=== PATIENT | female | born 1950 | race Caucasian/White ===

== ENCOUNTER → 2016-07-13 | Outpatient (CLI) | payer OTHER ==
[~2016-07-13] MED LIST: ACET-1256 PO; ASPI-390 PO; CLX/20 PO
[2016-07-13 12:21] LABS: BASO % 0.6 %; BASO ABS # 0.03 K/uL (0-0.2); COMPLETE YES; EOS % 1.4 %; HEMATOCRIT 40.4 % (37-47); IG% 0.2 %; LYMPH % 31.1 %; LYMPH ABS # 1.53 K/uL (1.2-3.4); MEAN CELL VOLUME 85.2 fL (80-100); MEAN CORPUSCULAR HEMOGLOBIN 28.7 pg (25-34); MEAN CORPUSCULAR HGB CONC 33.7 g/dl (32-36); MEAN PLATELET VOLUME 9.5 fL (7.4-10.4); MONO % 7.7 %; PLATELET COUNT 266 K/uL (130-400); RED BLOOD COUNT 4.74 M/uL (4.2-5.4); WHITE BLOOD COUNT 4.92 K/uL (4.8-10.8)
[2016-07-13 12:51] LABS: ALT/SGPT 21 U/L (12-78); BLOOD UREA NITROGEN 15 mg/dl (7-18); BUN/CREATININE RATIO 19.7 (10-20); CALCIUM 8.8 mg/dl (8.5-10.1); CARBON DIOXIDE 24 mmol/L (21-32); CHLORIDE 108 mmol/L (98-107); CHOLESTEROL 189 mg/dl (0-200); CREATININE 0.75 mg/dl (0.60-1.20); GLUCOSE 90 mg/dl (70-99); POTASSIUM 3.9 mmol/L (3.5-5.1); SODIUM 141 mmol/L (136-145); TRIGLYCERIDES 93 mg/dl (0-150); VERY LOW DENSITY LIPOPROT CALC 19 mg/dl
[2016-07-13 13:03] LABS: ALB/GLOB RATIO 0.9 (0.9-2); ALKALINE PHOSPHATASE 85 U/L (45-117); AST/SGOT 22 U/L (15-37); CHOLESTEROL/HDL RATIO 2.9; HDL CHOLESTEROL 65 mg/dl; LDL CHOLESTEROL CALCULATED 105 mg/dl; PHOSPHORUS 2.5 mg/dl (2.5-4.9); URIC ACID 3.8 mg/dl (2.6-7.2)
[2016-07-13 13:11] LABS: ESTIMATED AVERAGE GLUCOSE 103 mg/dl; HA1C FLAG Normal (Normal)
[2016-07-16 12:53] LABS: C-REACTIVE PROT HIGHSEN 7.7 MG/L
== END | disposition home or self-care (01) ==
LOC: C.LAB 11:18
PROVIDERS: ATTEND Family Medicine
DX: R73.09 Other abnormal glucose (principal); E55.9 Vitamin D deficiency, unspecified; D51.9 Vitamin B12 deficiency anemia, unspecified

== ENCOUNTER → 2016-08-03 | Outpatient (CLI) | payer OTHER ==
--- NOTE | 2016-08-03 10:26 | DIAGNOSTIC IMAGING REPORT ---
PELVIS AND BILATERAL HIP RADIOGRAPHS CLINICAL HISTORY: Right groin pain. COMPARISON STUDY: No previous studies for comparison. FINDINGS: The sacroiliac joints and symphysis pubis are intact. There is no acute fracture within the pelvis or the hips. There is mild to moderate arthritis of the sacroiliac joints. No suspicious osseous lesion is present. There is mild joint space narrowing of the right hip with osteophytosis. There may be subchondral cysts within the right femoral head. There is no evidence for avascular necrosis. There is mild osteophytosis of the left hip. IMPRESSION: 1. No acute fracture within the pelvis or hips. 2. Mild to moderate arthritis of the right hip. 3. Mild arthritis of the left hip. Electronically signed by: Jaden Arrieta M.D. 08/03/2016 10:24 AM Dictated Date/Time: 08/03/2016 10:23 AM
== END | disposition home or self-care (01) ==
LOC: C.RAD 09:06
PROVIDERS: ATTEND Family Medicine
DX: R10.30 Lower abdominal pain, unspecified (principal); M16.0 Bilateral primary osteoarthritis of hip

== ENCOUNTER → 2016-09-17 | Outpatient (CLI) | payer OTHER | END | disposition home or self-care (01) | LOC: C.PAPS 10:06 | PROVIDERS: ATTEND Obstetrics & Gynecology | DX: Z01.419 Encounter for gynecological examination (general) (routine) without abnormal findings (principal); C50.919 Malignant neoplasm of unspecified site of unspecified female breast ==

== ENCOUNTER → 2017-06-05 | Outpatient (CLI) | payer OTHER ==
--- NOTE | 2017-06-05 11:01 | DIAGNOSTIC IMAGING REPORT ---
CHEST 2 VIEWS ROUTINE CLINICAL HISTORY: COUGH COMPARISON STUDY: No previous studies for comparison. FINDINGS: The cardiac and mediastinal contours are normal. There is no evidence of focal pulmonary consolidation. There is no evidence of failure. No pleural effusions are visualized.[ IMPRESSION: No active disease in the chest. Electronically signed by: Power Monson M.D. 06/05/2017 10:59 AM Dictated Date/Time: 06/05/2017 10:59 AM
== END | disposition home or self-care (01) ==
LOC: C.RADBC 10:18
PROVIDERS: ATTEND Family Medicine
DX: R05 Cough (principal)

== ENCOUNTER 2020-05-27 02:58 | Inpatient (IN) ==
[2020-05-27] MEDS ORDERED: DEXAMETHASONE SOD INJ 4 MG/ML VIAL ONE (03:22)
[2020-05-27] MEDS ORDERED: DEXAMETHASONE SOD INJ 10 MG/ML VIAL IV ONE (03:22)
[2020-05-27] MEDS ORDERED: ALBUTEROL HFA 8 GM INHALER INH ONE ×2 (03:22)
--- NOTE | 2020-05-27 03:30 | Emergency Department Note ---
History of Present Illness General Chief complaint: Shortness of Breath/Dyspnea Stated complaint: + COVID - O2 LEVELS LOW Time Seen by Provider: 05/27/20 03:11 History of Present Illness This 69-year-old diagnosed with Covid 6 days ago presents to the ER complaining of worsening shortness of breath Location: Chest Quality: Hard to breathe Severity: Severe Duration: Past few days Timing: Started to get worse few days ago Context: Patient can barely walk and O2 sats are low at home and came in Modifying factors: better with rest; worse with activity Patient denies chest pain, abdominal pain, vomiting, diarrhea. No prior lung disease per patient. She does not smoke. O2 sats are 80% on room air. Home Medications Medication Instructions Recorded Confirmed Type Toviaz 8 mg PO QAM 08/17/19 05/27/20 History cholecalciferol (vitamin D3) 5,000 unit PO QAM 08/17/19 05/27/20 History [Vitamin D3] cyanocobalamin (vitamin B-12) 5,000 mcg PO QAM 08/17/19 05/27/20 History venlafaxine 75 mg PO QAM 03/16/20 05/27/20 History atenolol 25 mg PO QPM 05/23/20 05/27/20 History Allergies Allergy/AdvReac Type Severity Reaction Status Date / Time Penicillins Allergy Mild ITCHING Verified 05/27/20 03:55 NSAIDS (Non-Steroidal AdvReac Mild ITCHING Verified 05/27/20 03:55 Anti-Inflamma Past Med/Surg History Medical History (Updated 05/27/20 @ 03:30 by Charla Rubin PA-C) Anxiety Depression GERD (gastroesophageal reflux disease) Hiatal hernia History of breast cancer LEFT LUMPECTOMY-1998 History of ovarian cyst Migraine Osteoarthritis Overactive bladder Stress incontinence Surgical History History of breast biopsy LEFT History of cholecystectomy History of colonoscopy W/ POLYPECTOMY History of lumpectomy of left breast History of oral surgery History of ovarian cystectomy History of surgery BLADDER TACK SURGERY History of tubal ligation History of wisdom tooth extraction Hx of LASIK Status post Mohs surgery x4 Family History Uncle Family hx of colon cancer Other No family history of adverse response to anesthesia Social History Smoking Status: Never smoker Second Hand Exposure: No; Hx Alcohol Use: Yes Alcohol type: wine Hx Substance Use: No Preferred Language: Uzbek Communication Ability: Effective Waste Chopper Required: No Beliefs That Will Affect Care: None Current Living Situation: Spouse Feels Safe at Home: Yes Assistive Devices: None Review of Systems A total of 10 systems reviewed and were otherwise negative Physical Exam Vital Signs Vital Signs - 24 hr 05/27/20 03:00 05/27/20 03:13 05/27/20 03:20 Temperature 36.0 C L Temperature Source Temporal Artery Scan Pulse Rate 78 73 72 Pulse Rate from SpO2 Sensor 73 72 Respiratory Rate 28 H 26 H 25 H Respiratory Effort / Characteristics Labored Blood Pressure 133/68 160/74 H Blood Pressure Mean 89 112 Pulse Oximetry 80 L 94 94 Oxygen Delivery Method Room Air Nasal Cannula Nasal Cannula Oxygen Flow Rate 6 6 Sepsis New/Unexplained Change in Mental Status N/A Sepsis Action Taken by Nursing No Action Required Oxygen Flow Rate - Titration Pulse Oximetry Post Tiitration 05/27/20 03:30 05/27/20 03:45 05/27/20 03:48 Temperature Temperature Source Pulse Rate 74 73 73 Pulse Rate from SpO2 Sensor 73 73 73 Respiratory Rate 30 H 31 H 21 Respiratory Effort / Characteristics Blood Pressure 137/92 Blood Pressure Mean 113 Pulse Oximetry 97 98 96 Oxygen Delivery Method Nasal Cannula Nasal Cannula Nasal Cannula Oxygen Flow Rate 6 6 6 Sepsis New/Unexplained Change in Mental Status Sepsis Action Taken by Nursing Oxygen Flow Rate - Titration Pulse Oximetry Post Tiitration 05/27/20 03:57 05/27/20 03:59 05/27/20 04:00 Temperature Temperature Source Pulse Rate 83 Pulse Rate from SpO2 Sensor 83 Respiratory Rate 21 Respiratory Effort / Characteristics Spontaneous Blood Pressure 155/84 H Blood Pressure Mean 105 Pulse Oximetry 80 L 94 Oxygen Delivery Method Room Air Nasal Cannula Oxygen Flow Rate 6 Sepsis New/Unexplained Change in Mental Status Sepsis Action Taken by Nursing Oxygen Flow Rate - Titration 6 Pulse Oximetry Post Tiitration 96 05/27/20 04:03 Temperature Temperature Source Pulse Rate 80 Pulse Rate from SpO2 Sensor Respiratory Rate 32 H Respiratory Effort / Characteristics Blood Pressure Blood Pressure Mean Pulse Oximetry 95 Oxygen Delivery Method Nasal Cannula Oxygen Flow Rate 6 Sepsis New/Unexplained Change in Mental Status Sepsis Action Taken by Nursing Oxygen Flow Rate - Titration Pulse Oximetry Post Tiitration VITALS: Vitals are noted on the nurse's note and reviewed by myself. Vital signs hypoxic and tachypneic. GENERAL: Elderly female working to breathe, in acute distress SKIN: The skin was without rashes, erythema, edema, or bruising. There is no tenting of the skin. Capillary reflex less than 2 seconds. HEAD: Normocephalic atraumatic. EARS: External auditory canals clear, tympanic membranes pearly omalley without erythema or effusion bilaterally. EYES: Pupils equal round and reactive to light and accommodation. Conjunctivae without injection, sclerae without icterus. Extraocular movements intact. NOSE: Patent, turbinates without inflammation or discharge. No sinus tenderness. MOUTH: Mucous membranes moist. Pharynx without erythema or exudate. Uvula midline. Airway patent. Tongue does not deviate. NECK: Supple without nuchal rigidity. No lymphadenopathy. No thyromegaly. Cervical spine is nontender. No JVD. HEART: Regular rate and rhythm LUNGS: Mild diffuse end expiratory wheezes, + retractions + accessory muscle use. ABDOMEN: Positive bowel sounds x 4. Normal tympanic percussion. Soft, nonten claudia, without masses or organomegaly. Abarca sign negative. No guarding or rebound tenderness. No CVA tenderness MUSCULOSKELETAL: No muscle atrophy, erythema, or edema noted. NEURO: Patient was alert and oriented to person place and time. Normal sensation to light and sharp touch. No focal neurological deficits. Course Administered Medications Discontinued Medications Albuterol (Albuterol Hfa 8 Gm Inhaler) Confirm Administered Dose 60 puffs INH .STK-MED ONE Stop: 05/27/20 03:23 Last Admin: 05/27/20 03:48 Dose: Not Given Documented by: [id number] Albuterol (Albuterol Hfa 8 Gm Inhaler) 2 puffs INH NOW ONE Stop: 05/27/20 03:23 Last Admin: 05/27/20 03:40 Dose: 2 puffs Documented by: [id number] Dexamethasone (Dexamethasone Sod Inj 4 Mg/Ml Vial) Confirm Administered Dose 8 mg .ROUTE .STK-MED ONE Stop: 05/27/20 03:23 Last Admin: 05/27/20 03:48 Dose: Not Given Documented by: [id number] Dexamethasone (Dexamethasone Sod Inj 10 Mg/Ml Vial) 6 mg IV NOW ONE Stop: 05/27/20 03:23 Last Admin: 05/27/20 03:48 Dose: 6 mg Documented by: [id number] Medical Decision Making Medical Records Attestation: I reviewed the patient's medical records. Home Medications Current Medication List: was personally reviewed by me Laboratory Data Attestation: I reviewed the patient's lab results. Result diagrams: 05/27/20 03:32 05/27/20 03:32 Lab Results 05/27/20 05/27/20 05/27/20 Range/Units 03:32 03:32 03:32 WBC 5.05 (4.8-10.8) K/uL RBC 4.36 (4.2-5.4) M/uL Hgb 12.4 (12.0-16.0) g/dL Hct 36.5 L (37-47) % MCV 83.7 (80-100) fL MCH 28.4 (25-34) pg MCHC 34.0 (32-36) g/dL RDW Std Deviation 38.2 (36.4-46.3) fL RDW Coeff of Vince 12.5 (11.5-14.5) % Plt Count 248 (130-400) K/uL MPV 9.5 (7.4-10.4) fL Immature Gran % (Auto) 0.4 % Neut % (Auto) 76.4 % Lymph % (Auto) 13.7 % Amite % (Auto) 9.3 % Eos % (Auto) 0.0 % Baso % (Auto) 0.2 % Neut # (Auto) 3.86 (1.4-6.5) K/uL Lymph # (Auto) 0.69 L (1.2-3.4) K/uL Amite # (Auto) 0.47 (0.11-0.59) K/uL Eos # (Auto) 0.00 (0-0.5) K/uL Baso # (Auto) 0.01 (0-0.2) K/uL Immature Gran # (Auto) 0.02 (0.00-0.02) K/uL PT 11.4 (9.0-12.0) Seconds INR 1.1 (0.9-1.1) APTT 29.0 (21.0-31.0) Seconds PTT Ratio 1.0 Sodium 136 (136-145) mmol/L Potassium 3.6 (3.5-5.1) mmol/L Chloride 103 (98-107) mmol/L Carbon Dioxide 29 (21-32) mmol/L Anion Gap 4.0 (3-11) BUN 11 (7-18) mg/dl Creatinine 0.66 (0.6-1.2) mg/dl Est Cr Clr Drug Dosing Not Reportable Est GFR ( Amer) 103.7 Est GFR (Non-Af Amer) 89.5 BUN/Creatinine Ratio 16.2 (10-20) Glucose 101 H (70-99) mg/dl Lactate (0.4-2.0) mmol/L Calcium 8.0 L (8.5-10.1) mg/dl Magnesium 2.2 (1.8-2.4) mg/dl Total Bilirubin 0.6 (0.2-1) mg/dl AST 64 H (15-37) U/L ALT 36 (12-78) U/L Alkaline Phosphatase 58 (45-117) U/L Troponin I < 0.015 (0-0.045) ng/ml Total Protein 6.7 (6.4-8.2) gm/dl Albumin 2.6 L (3.4-5.0) gm/dl Globulin 4.1 H (2.5-4.0) gm/dl Albumin/Globulin Ratio 0.6 L (0.9-2) Procalcitonin (0-0.5) ng/ml 05/27/20 05/27/20 Range/Units 03:32 03:32 WBC (4.8-10.8) K/uL RBC (4.2-5.4) M/uL Hgb (12.0-16.0) g/dL Hct (37-47) % MCV (80-100) fL MCH (25-34) pg MCHC (32-36) g/dL RDW Std Deviation (36.4-46.3) fL RDW Coeff of Vince (11.5-14.5) % Plt Count (130-400) K/uL MPV (7.4-10.4) fL Immature Gran % (Auto) % Neut % (Auto) % Lymph % (Auto) % Amite % (Auto) % Eos % (Auto) % Baso % (Auto) % Neut # (Auto) (1.4-6.5) K/uL Lymph # (Auto) (1.2-3.4) K/uL Amite # (Auto) (0.11-0.59) K/uL Eos # (Auto) (0-0.5) K/uL Baso # (Auto) (0-0.2) K/uL Immature Gran # (Auto) (0.00-0.02) K/uL PT (9.0-12.0) Seconds INR (0.9-1.1) APTT (21.0-31.0) Seconds PTT Ratio Sodium (136-145) mmol/L Potassium (3.5-5.1) mmol/L Chloride (98-107) mmol/L Carbon Dioxide (21-32) mmol/L Anion Gap (3-11) BUN (7-18) mg/dl Creatinine (0.6-1.2) mg/dl Est Cr Clr Drug Dosing Est GFR ( Amer) Est GFR (Non-Af Amer) BUN/Creatinine Ratio (10-20) Glucose (70-99) mg/dl Lactate 1.8 (0.4-2.0) mmol/L Calcium (8.5-10.1) mg/dl Magnesium (1.8-2.4) mg/dl Total Bilirubin (0.2-1) mg/dl AST (15-37) U/L ALT (12-78) U/L Alkaline Phosphatase (45-117) U/L Troponin I (0-0.045) ng/ml Total Protein (6.4-8.2) gm/dl Albumin (3.4-5.0) gm/dl Globulin (2.5-4.0) gm/dl Albumin/Globulin Ratio (0.9-2) Procalcitonin < 0.05 (0-0.5) ng/ml Imaging Data Attestation: I personally reviewed and interpreted this imaging study as follows: MDM Narrative Prior records/ancillary studies reviewed. Triage Nursing notes reviewed. The patient's history was concerning for respiratory difficulties. Differential diagnosis: Etiologies such as infections, reactive airway disease, pneumonia, pneumothorax, COPD, CHF, cardiac ischemia, pulmonary embolism, musculoskeletal, gastrointestinal, as well as others were entertained. Physical examination: As above. ER treatment provided: An order was placed for continuous cardiac monitoring. The monitor shows a rate of 60-100 with a sinus rhythm. Decadron, albuterol On reassessment the patient felt better. Diagnostic interpretation by me: The electrocardiogram was negative for acute ischemic or pathologic change. Normal sinus, normal intervals, no acute ST-T wave changes. Impression normal sinus rhythm interpreted by myself EKG ordered for dyspnea I think arrhythmia is unlikely. EKG shows normal sinus rhythm with no interval abnormalities such as QT prolongation or WPW. There are no findings to suggest Brugada syndrome. Cardiac monitoring in the emergency department reveals no tachycardic or bradycardic dysrhythmia. Hypertrophic cardiomyopathy was considered but there are no clear historical elements pointing toward this. EKG is not suggestive. The QRS voltage is not extremely large and there are no suggestive Q waves. The labs revealed negative lactic acid Patient was positive for Covid 6 days ago Blood cultures pending Patient refused ABG Imaging studies: Chest x-ray bilateral multifocal pneumonia concerning for Covid that is worse than prior x-ray per my interpretation. Consultation: A consultation was placed with Dr. Augustin, hospitalist. The case was discussed and diagnostics were reviewed. The patient was evaluated in the ER for further treatment. This appears to be consistent with worsening Covid pneumonia with respiratory failure and hypoxemia. Patient started on steroids. Medicine was consulted. I did speak to the per the patient's request. Patient is admitted.. By the evaluation outlined above emergent etiologies such as CHF, cardiac ischemia, pulmonary embolism, pneumothorax, musculoskeletal, as well as others were deemed relatively unlikely. The pt informed about the findings as listed above. All questions were answered and pleased with the treatment. The chart was completed utilizing [employer] Speech voice recognition software. Grammatical errors, random word insertions, pronoun errors, and incomplete sentences are an occassional consequence of this system due to software limitations, ambient noise, and hardware issues. Any formal questions or concerns about the content, text, or information contained within the body of this dictation should be directly addressed to the physician occupational therapist assistant for clarification. Impression & Plan Pneumonia due to COVID-19 virus, Hypoxemia Discharge Plan Visit Data Chief Complaint: Shortness of Breath/Dyspnea Stated Complaint: + COVID - O2 LEVELS LOW ED Provider: Pheasant,Devi S. ED Midlevel Provider: Charla Rubin Discharge Problem: Pneumonia due to COVID-19 virus, Hypoxemia Patient Disposition: Admitted As Inpatient Condition: Fair Forms Stand Alone Forms: My [facility] Prescriptions Prescriptions: No Action atenolol 25 mg tablet 25 mg PO QPM RF: 0 Toviaz 8 mg tablet extended release 24 hr 8 mg PO QAM RF: 0 cholecalciferol (vitamin D3) [Vitamin D3] 125 mcg (5,000 unit) Tablet 5,000 unit PO QAM RF: 0 cyanocobalamin (vitamin B-12) 5,000 mcg Capsule 5,000 mcg PO QAM RF: 0 venlafaxine 75 mg Tablet 75 mg PO QAM RF: 0 Referrals Referrals: Lui Borja MD [Primary Care Provider] -
[2020-05-27 03:46] LABS: Basophils # (auto) 0.01 K/uL (0-0.2); Basophils % (auto) 0.2 %; Hematocrit (blood only) 36.5 % (37-47); Hemoglobin 12.4 g/dL (12.0-16.0); Immature Granulocytes # (auto) 0.02 K/uL (0.00-0.02); Immature Granulocytes % (auto) 0.4 %; Lymphocytes # (auto) 0.69 K/uL (1.2-3.4); Lymphocytes % (auto) 13.7 %; Mean Corpuscular Hemoglobin 28.4 pg (25-34); Mean Corpuscular Volume 83.7 fL (80-100); Mean Platelet Volume 9.5 fL (7.4-10.4); Monocytes # (auto) 0.47 K/uL (0.11-0.59); Monocytes % (auto) 9.3 %; Neutrophils # (auto) 3.86 K/uL (1.4-6.5); Neutrophils % (auto) 76.4 %; Platelet Count 248 K/uL (130-400); RDW Coefficient of Variation 12.5 % (11.5-14.5); RDW Standard Deviation 38.2 fL (36.4-46.3); Red Blood Count 4.36 M/uL (4.2-5.4); White Blood Count 5.05 K/uL (4.8-10.8)
[2020-05-27 03:58] LABS: INR 1.1 (0.9-1.1); Prothrombin Time 11.4 Seconds (9.0-12.0)
[2020-05-27 04:03] LABS: Alanine Aminotransferase 36 U/L (12-78); Albumin Level 2.6 gm/dl (3.4-5.0); Aspartate Aminotransferase 64 U/L (15-37); BUN Creatinine Ratio 16.2 (10-20); Blood Urea Nitrogen 11 mg/dl (7-18); Carbon Dioxide 29 mmol/L (21-32); Chloride 103 mmol/L (98-107); Est GFR (African American) 103.7; Est GFR (Non-African American) 89.5; Glucose 101 mg/dl (70-99); Magnesium 2.2 mg/dl (1.8-2.4); Potassium 3.6 mmol/L (3.5-5.1); Sodium 136 mmol/L (136-145)
[2020-05-27 04:08] LABS: Albumin Globulin Ratio 0.6 (0.9-2); Alkaline Phosphatase 58 U/L (45-117); Bilirubin,Total 0.6 mg/dl (0.2-1); Globulin 4.1 gm/dl (2.5-4.0); Total Protein 6.7 gm/dl (6.4-8.2); Troponin I < 0.015 ng/ml (0-0.045)
--- NOTE | 2020-05-27 05:37 | History & Physical Report ---
Date of Service May 27, 2020 Assessment & Plan (1) Acute respiratory failure with hypoxia: Acute respiratory failure with hypoxia/bilateral pneumonia due to COVID-19 virus- Dexamethasone 6 mg IV every morning Remdesivir IV per protocol Convalescent plasma, consent obtained Ventolin HFA 2 puffs 4 times daily Ceftriaxone 1 g IV daily Azithromycin 500 mg IV daily Zinc sulfate turn 20 mg p.o. daily Hydroxychloroquine 200 mg p.o. twice daily Guaifenesin extended release 600 mg p.o. twice daily NSS + KCl 20 mEq at 100 mils per hour BiPAP as needed per protocol Present on Admission?: Yes (2) Pneumonia due to COVID-19 virus: See above Present on Admission?: Yes (3) Overactive bladder: Continue Toviaz or equivalent Present on Admission?: Yes (4) Hypertension: Continue atenolol 25 mg daily with hold parameters Present on Admission?: Yes (5) Vitamin B12 deficiency: Continue vitamin B12 supplement 5000 mcg p.o. every morning Present on Admission?: Yes (6) Anxiety and depression: Continue venlafaxine 75 mg p.o. every morning Present on Admission?: Yes (7) Breast cancer: History of Present Illness Chief Complaint: The patient presents to the emergency department with complaint of worsening shortness of breath over the past several days Primary Care Provider: Lui Borja MD The patient is a 69-year-old female with a past medical history including breast cancer, hypertension, vitamin B12 deficiency, overactive bladder and depression. She had been seen in the emergency department on 05/21 and was diagnosed with COVID-19 at that time. She was given symptomatic treatment for cough, and told to quarantine at home. Since that time she has become progressively more short of breath, until it worsened to the point today where she has cut back in the emergency department for assessment. In the emergency department, patient was found to have a pulse ox of 80% on room air, that improved to 95% on 6 L oxygen mask Chest x-ray showed a worsening bilateral interstitial pneumonia compared to x- ray of 05/21. Allergies Allergy/AdvReac Type Severity Reaction Status Date / Time Penicillins Allergy Mild ITCHING Verified 05/27/20 03:55 NSAIDS (Non-Steroidal AdvReac Mild ITCHING Verified 05/27/20 03:55 Anti-Inflamma Home Medications Medication Instructions Recorded Confirmed Type Toviaz 8 mg PO QAM 08/17/19 05/27/20 History cholecalciferol (vitamin D3) 5,000 unit PO QAM 08/17/19 05/27/20 History [Vitamin D3] cyanocobalamin (vitamin B-12) 5,000 mcg PO QAM 08/17/19 05/27/20 History venlafaxine 75 mg PO QAM 03/16/20 05/27/20 History atenolol 25 mg PO QPM 05/23/20 05/27/20 History Past Med/Surg History Medical History (Updated 05/27/20 @ 05:46 by Suhas Franco MD) Anxiety and depression GERD (gastroesophageal reflux disease) Hiatal hernia History of breast cancer LEFT LUMPECTOMY-1998 History of ovarian cyst Hypertension Migraine Osteoarthritis Overactive bladder Stress incontinence Vitamin B12 deficiency Surgical History History of breast biopsy LEFT History of cholecystectomy History of colonoscopy W/ POLYPECTOMY History of lumpectomy of left breast History of oral surgery History of ovarian cystectomy History of surgery BLADDER TACK SURGERY History of tubal ligation History of wisdom tooth extraction Hx of LASIK Status post Mohs surgery x4 Family History Uncle Family hx of colon cancer Other No family history of adverse response to anesthesia Social History Smoking Status: Never smoker Second Hand Exposure: No; Hx Alcohol Use: Yes Alcohol type: wine Hx Substance Use: No Preferred Language: Portuguese Communication Ability: Effective Merchandise Flow Manager Required: No Beliefs That Will Affect Care: None Current Living Situation: Spouse Feels Safe at Home: Yes Assistive Devices: None Review of Systems Review of Systems: The patient denies palpitations, lower extremity swelling, sore throat, fevers, chills, sweats, nausea, vomiting, diarrhea , constipation, abdominal pain, pelvic pain, blood in urine or stool, dysuria, urinary frequency or urgency, lightheadedness, dizziness, headache, memory loss, loss of consciousness, rash, abnormal bruising or bleeding, imbalance, focal weakness, numbness or tingling in arms or legs, back or neck pain, or night sweats. The review of systems is otherwise negative other than for that already noted above, and at least 10 systems have been reviewed. Physical Exam Physical Exam: The patient is awake, alert and oriented 3, well developed and well nourished, normocephalic and atraumatic, lying in bed and in mild to moderate respiratory distress. HEENT--PERRL, EOMI, mucous membranes and oropharynx dry. Neck--supple. No JVD. No bruits. Thyroid normal, trachea midline, no adenopathy. Heart--normal S1 and S2. No murmurs, rubs or gallops. Lungs--coarse breath sounds bilaterally. Mild respiratory distress without accessory muscle use. Abdomen--normal bowel sounds and soft. Nontender. Nondistended, no hernias or masses, no organomegaly. Extremities--no cyanosis or clubbing. No edema. Dermatologic--normal skin turgor, normal color, no abnormal lymph nodes, no rash. Neurologic--cranial nerves II through XII grossly intact. Rheumatologic--normal range of motion. Psychiatric--normal affect. Results & Data Results & Data ([facility]) Vital Signs (Past 12 Hours) Vital Signs Temp Pulse Resp BP Pulse Ox 05/27/20 05:31 71 19 93 05/27/20 05:30 70 20 148/78 H 94 05/27/20 04:45 79 20 97 05/27/20 04:31 75 24 98 05/27/20 04:30 76 24 146/83 H 98 05/27/20 04:15 76 24 96 05/27/20 04:03 80 32 H 95 05/27/20 04:00 83 21 155/84 H 94 05/27/20 03:59 80 L 05/27/20 03:48 73 21 137/92 96 05/27/20 03:45 73 31 H 98 05/27/20 03:30 74 30 H 97 05/27/20 03:20 72 25 H 94 05/27/20 03:13 73 26 H 160/74 H 94 05/27/20 03:00 96.8 F L 78 28 H 133/68 80 L Laboratory Results Laboratory Results WBC 5.05 K/uL (4.8-10.8) 05/27/20 03:32 RBC 4.36 M/uL (4.2-5.4) 05/27/20 03:32 Hgb 12.4 g/dL (12.0-16.0) 05/27/20 03:32 Hct 36.5 % (37-47) L 05/27/20 03:32 MCV 83.7 fL (80-100) 05/27/20 03:32 MCH 28.4 pg (25-34) 05/27/20 03:32 MCHC 34.0 g/dL (32-36) 05/27/20 03:32 RDW Std Deviation 38.2 fL (36.4-46.3) 05/27/20 03:32 RDW Coeff of Vince 12.5 % (11.5-14.5) 05/27/20 03:32 Plt Count 248 K/uL (130-400) 05/27/20 03:32 MPV 9.5 fL (7.4-10.4) 05/27/20 03:32 Immature Gran % (Auto) 0.4 % 05/27/20 03:32 Neut % (Auto) 76.4 % 05/27/20 03:32 Lymph % (Auto) 13.7 % 05/27/20 03:32 Webb % (Auto) 9.3 % 05/27/20 03:32 Eos % (Auto) 0.0 % 05/27/20 03:32 Baso % (Auto) 0.2 % 05/27/20 03:32 Neut # (Auto) 3.86 K/uL (1.4-6.5) 05/27/20 03:32 Lymph # (Auto) 0.69 K/uL (1.2-3.4) L 05/27/20 03:32 Webb # (Auto) 0.47 K/uL (0.11-0.59) 05/27/20 03:32 Eos # (Auto) 0.00 K/uL (0-0.5) 05/27/20 03:32 Baso # (Auto) 0.01 K/uL (0-0.2) 05/27/20 03:32 Immature Gran # (Auto) 0.02 K/uL (0.00-0.02) 05/27/20 03:32 PT 11.4 Seconds (9.0-12.0) 05/27/20 03:32 INR 1.1 (0.9-1.1) 05/27/20 03:32 APTT 29.0 Seconds (21.0-31.0) 05/27/20 03:32 PTT Ratio 1.0 05/27/20 03:32 Sodium 136 mmol/L (136-145) 05/27/20 03:32 Potassium 3.6 mmol/L (3.5-5.1) 05/27/20 03:32 Chloride 103 mmol/L (98-107) 05/27/20 03:32 Carbon Dioxide 29 mmol/L (21-32) 05/27/20 03:32 Anion Gap 4.0 (3-11) 05/27/20 03:32 BUN 11 mg/dl (7-18) 05/27/20 03:32 Creatinine 0.66 mg/dl (0.6-1.2) 05/27/20 03:32 Est Cr Clr Drug Dosing Not Reportable 05/27/20 03:32 Est GFR ( Amer) 103.7 05/27/20 03:32 Est GFR (Non-Af Amer) 89.5 05/27/20 03:32 BUN/Creatinine Ratio 16.2 (10-20) 05/27/20 03:32 Glucose 101 mg/dl (70-99) H 05/27/20 03:32 Lactate 1.8 mmol/L (0.4-2.0) 05/27/20 03:32 Calcium 8.0 mg/dl (8.5-10.1) L 05/27/20 03:32 Magnesium 2.2 mg/dl (1.8-2.4) 05/27/20 03:32 Total Bilirubin 0.6 mg/dl (0.2-1) 05/27/20 03:32 AST 64 U/L (15-37) H 05/27/20 03:32 ALT 36 U/L (12-78) 05/27/20 03:32 Alkaline Phosphatase 58 U/L (45-117) 05/27/20 03:32 Troponin I < 0.015 ng/ml (0-0.045) 05/27/20 03:32 Total Protein 6.7 gm/dl (6.4-8.2) 05/27/20 03:32 Albumin 2.6 gm/dl (3.4-5.0) L 05/27/20 03:32 Globulin 4.1 gm/dl (2.5-4.0) H 05/27/20 03:32 Albumin/Globulin Ratio 0.6 (0.9-2) L 05/27/20 03:32 Procalcitonin < 0.05 ng/ml (0-0.5) 05/27/20 03:32 Code Status & VTE Plan Code Status Full code VTE Prophylaxis Plan VTE Prophylaxis will be ordered: Yes PG Care Time/CCT Total # of Minutes Spent Total Time Spent with Patient: Total time spent is greater than 50% in coordination of care (as documented) at patient's floor/unit and/or counseling patient: Coding Level of Care Code 47613 Initial Inpt Care Lvl 3 Diagnoses Acute respiratory failure with hypoxia J96.01 Pneumonia due to COVID-19 virus U07.1; J12.89 Overactive bladder N32.81 Hypertension I10 Vitamin B12 deficiency E53.8 Anxiety and depression F41.9; F32.9 Breast cancer C50.919
[2020-05-27] MEDS ORDERED: ACETAMINOPHEN 325 MG TAB PO PRN (06:41)
[2020-05-27] MEDS ORDERED: BENZONATATE 100 MG CAPSULE PO PRN (06:41)
[2020-05-27] MEDS ORDERED: NSS + 20MEQ KCL 20 MEQ/1,000 ML BAG IV SCH (06:41)
[2020-05-27] MEDS ORDERED: ONDANSETRON INJ 2 MG/ML 2 ML VIAL IV PRN (06:41)
--- NOTE | 2020-05-27 07:05 | XRay Report ---
XR chest 1V portable CLINICAL HISTORY: SEPSIS COMPARISON STUDY: 05/23/2020 FINDINGS: There are progressive multifocal airspace opacities consistent with a progressive pneumonia . There is no failure. There are no significant pleural effusions.[ IMPRESSION: Progressive bilateral pulmonary airspace opacities consistent with a worsening multifocal pneumonia ACT 112: Negative or not required by law. Electronically signed by: Power Monson M.D. 05/27/2020 7:03 AM
[2020-05-27] MEDS ORDERED: REMDESIVIR 200 MG in SODIUM CHLORIDE 0.9% 210 ML IV ONE (07:30)
[2020-05-27] MEDS ORDERED: HYDROXYCHLOROQUINE SULFATE 200 MG TAB PO SCH (09:00)
[2020-05-27] MEDS ORDERED: cefTRIAXone SODIUM 2,000 MG in DEXTROSE 5% 50 ML IV SCH (09:00)
[2020-05-27] MEDS ORDERED: AZITHROMYCIN 500 MG in DEXTROSE 5% 250 ML IV SCH (09:00)
[2020-05-27 10:01] LABS: Appearance Urine Clear (Clear); Bilirubin Urine Negative (Negative); Blood Urine Negative (Negative); Color Urine Yellow; Glucose Urine UA Negative (Negative); Ketones Urine Trace (Negative); Leukocyte Esterase Urine Negative (Negative); Nitrite Urine Negative (Negative); Protein Urine Negative (Negative); Specific Gravity Urine 1.008 (1.000-1.030); Urobilinogen Urine Negative (Negative); pH Urine 7.5 (4.5-7.5)
--- NOTE | 2020-05-27 10:05 | Electrocardiogram Report ---
Test Reason : Blood Pressure : / mmHG Vent. Rate : 070 BPM Atrial Rate : 070 BPM P-R Int : 146 ms QRS Dur : 092 ms QT Int : 418 ms P-R-T Axes : 054 -22 045 degrees QTc Int : 451 ms Normal sinus rhythm Normal ECG When compared with ECG of 23-MAY-2020 20:19, No significant change was found Confirmed by Brian Arvizu ([id number]) on 05/27/2020 10:04:45 AM Referred By: REFERRED SELF Confirmed By:Brian Arvizu
[2020-05-27] MEDS: SODIUM CHLORIDE 0.9% 10ML FLUSH IV SCH (10:08)
[2020-05-27] MEDS: CHOLECALCIFEROL 1,000 UNITS 25 MCG TAB PO SCH (10:11)
[2020-05-27] MEDS: VENLAFAXINE HCL XR 75 MG CAPXR PO SCH (10:11)
[2020-05-27] MEDS: ZINC SULFATE 220 MG CAPSULE PO SCH (10:12)
[2020-05-27] MEDS: CYANOCOBALAMIN (VITAMIN B-12) 2,500 MCG TAB.SUBL SL SCH (10:12)
[2020-05-27] MEDS ORDERED: POLYETHYLENE (MIRALAX) 17 GM PACK PO PRN (14:21)
[2020-05-27] MEDS: ALBUTEROL HFA 8 GM INHALER INH SCH ×3 (20:01→20:08)
[2020-05-27] MEDS: ATENOLOL 25 MG TABLET PO SCH (21:03)
[2020-05-28] MEDS ORDERED: ALBUTEROL HFA 8 GM INHALER INH PRN (04:46)
--- NOTE | 2020-05-28 07:45 | Communication Note ---
Date of Service: May 27, 2020 Patient was seen and examined however I will not be billing for this encounter as she was admitted earlier today. She reports probably having symptoms for around 3 weeks although of exact onset. On further discussion regarding benefits, risks of convalescent plasma transfusions she subsequently declined this. She feels much improved after being started on high flow oxygen in ER. Eating and drinking well therefore IV fluids stopped.
[2020-05-28 08:03] LABS: Basophils # (auto) 0.01 K/uL (0-0.2); Basophils % (auto) 0.1 %; Hematocrit (blood only) 37.6 % (37-47); Immature Granulocytes # (auto) 0.03 K/uL (0.00-0.02); Immature Granulocytes % (auto) 0.4 %; Lymphocytes # (auto) 0.77 K/uL (1.2-3.4); Mean Corpuscular Hemoglobin 28.8 pg (25-34); Mean Corpuscular Hgb Conc 34.6 g/dL (32-36); Mean Corpuscular Volume 83.2 fL (80-100); Mean Platelet Volume 9.6 fL (7.4-10.4); Monocytes # (auto) 0.53 K/uL (0.11-0.59); Monocytes % (auto) 6.9 %; Neutrophils # (auto) 6.33 K/uL (1.4-6.5); Neutrophils % (auto) 82.6 %; Platelet Count 327 K/uL (130-400); RDW Coefficient of Variation 12.7 % (11.5-14.5); RDW Standard Deviation 38.4 fL (36.4-46.3); Red Blood Count 4.52 M/uL (4.2-5.4); White Blood Count 7.67 K/uL (4.8-10.8)
[2020-05-28] MEDS: dexAMETHasone 6 MG in SYRINGE 0 ML IV SCH (08:08)
[2020-05-28] MEDS: ENOXAPARIN INJ 40 MG/0.4 ML SYR SQ SCH ×2 (08:09→20:55)
[2020-05-28] MEDS: CHOLECALCIFEROL 1,000 UNITS 25 MCG TAB PO SCH (08:09)
[2020-05-28] MEDS: ZINC SULFATE 220 MG CAPSULE PO SCH (08:10)
[2020-05-28] MEDS: VENLAFAXINE HCL XR 75 MG CAPXR PO SCH (08:10)
[2020-05-28] MEDS: CYANOCOBALAMIN (VITAMIN B-12) 2,500 MCG TAB.SUBL SL SCH (08:11)
[2020-05-28 08:23] LABS: Albumin Level 2.5 gm/dl (3.4-5.0); BUN Creatinine Ratio 22.2 (10-20); C Reactive Protein 7.67 mg/dl (0-0.29); Calcium 8.6 mg/dl (8.5-10.1); Creatinine Clr Calc Pharmacy 81.4 ml/min; Est GFR (African American) 93.6; Est GFR (Non-African American) 80.8; Potassium 3.7 mmol/L (3.5-5.1)
[2020-05-28 08:28] LABS: Albumin Globulin Ratio 0.6 (0.9-2); Bilirubin,Total 0.5 mg/dl (0.2-1); Ferritin 436.2 ng/ml (8-388); Globulin 4.3 gm/dl (2.5-4.0); Total Protein 6.8 gm/dl (6.4-8.2)
[2020-05-28 08:37] LABS: D Dimer 2310 ug/L FEU (0-500)
[2020-05-28] MEDS ORDERED: OPTIRAY 320 125ml IV ONE (09:58)
--- NOTE | 2020-05-28 10:13 | CT Scan Report ---
CT ANGIOGRAPHY OF THE CHEST, PULMONARY EMBOLUS PROTOCOL CLINICAL HISTORY: PE,hypoxia, COVID,elevated D-dimer COMPARISON STUDY: Chest radiograph May 27, 2020. TECHNIQUE: Following IV administration of 120 mL of Optiray-320, helical axial images of the chest we re obtained utilizing the pulmonary embolus protocol. Maximal intensity projections and sagittal and coronal reformats were viewed on an independent 3D workstation. IV contrast was administered withou t complication. Automated exposure control was utilized for the study. A dose lowering technique wa s utilized adhering to the principles of ALARA. CT DOSE: 556.96 mGycm FINDINGS: No pulmonary emboli are identified although the segmental and subsegmental pulmonary arter ies are suboptimally assessed due to motion artifact. Mild cardiomegaly is noted. Note thoracic aorti c dissection is present. Mildly enlarged subcarinal lymph node measures 1.8 cm in short axis diameter . There is no pneumothorax or pleural effusion. Lungs are suboptimally assessed given respiratory mot ion. Extensive bilateral airspace opacities have progressed since radiograph of May 27, 2016. Se veral hepatic cysts are noted. The gallbladder surgically absent. IMPRESSION: 1. No pulmonary emboli identified although segmental and subsegmental pulmonary arteries suboptimally assessed due to respiratory motion. 2. Progression of extensive bilateral airspace opacities consistent with an infectious process. 3. Mildly enlarged subcarinal lymph node which is likely reactive. ACT 112: Negative or not required by law. Electronically signed by: Jaden Arrieta M.D. 05/28/2020 10:12 AM
--- NOTE | 2020-05-28 11:44 | Hospitalist Progress Note ---
Date of Service May 28, 2020 Assessment & Plan (1) Acute respiratory failure with hypoxia: Acute respiratory failure with hypoxia/bilateral pneumonia due to COVID-19 virus-symptoms started on 05/07 and her test was positive at an urgent care on 05/09 Had GI symptoms, and progressively worsening shortness of breath since that time. Was found to have a pulse ox of 80% on room air upon arrival Still with high oxygen requirement of 15 L oxygen mask on the morning of 05/28- convert to high flow nasal cannula so she can eat and drink without taking off oxygen and may also provide some PEEP D-dimer is elevated at 2310, CT angiogram chest on 05/28 is negative for PE, but shows bilateral extensive infiltrates She is unable to prone she thinks but will try to lie on her side Discussed care with pulmonology on 05/28-recommends nightly BiPAP 05/10 Continue dexamethasone 6 mg IV every morning x10-day course Continue remdesivir IV once daily for severe disease Convalescent plasma not given as not likely to benefit this far out Continue Ventolin HFA 2 puffs 4 times daily Ceftriaxone 1 g IV daily and azithromycin 500 mg IV daily given initially but then discontinued, procalcitonin negative Continue zinc sulfate daily -Follow CBC, CMP, ESR, CRP (2) Pneumonia due to COVID-19 virus: See above (3) Overactive bladder: Holding Toviaz (4) Hypertension: Blood pressures are controlled Continue atenolol 25 mg daily with hold parameters (5) Vitamin B12 deficiency: Continue vitamin B12 supplement 5000 mcg p.o. every morning (6) Anxiety and depression: Stable Continue venlafaxine 75 mg p.o. every morning (7) Breast cancer: History of such, not ongoing (8) DVT prophylaxis: Lovenox 40 mg SQ twice daily Disposition-continued stay in PCU Admission and Anticipated Discharge Date Admission Date: May 27, 2020 Subjective Patient still feels quite short of breath with minimal exertion in the bed. Does feel better than when she came in yesterday. Denies chest pains, denies nausea or vomiting. Had some dry heaves she reports earlier in the course of illness. Also had some diarrhea which now is improved. Reviewed her case and CT scan with pulmonology who recommended BiPAP at nighttime but patient was refusing this when approached by respiratory therapy. Telemetry with normal sinus rhythm and rates in the 60s, PACs and some sinus bradycardia. Review of Systems Review of Systems: All systems reviewed & are unremarkable except as noted in HPI & below Physical Exam Constitutional: WD/WN, vitals as above + obese Eyes: + anicteric sclerae Neck: trachea midline, no thyromegaly Respiratory: normal respiratory effort Auscultation: + crackles (Bibasilar); no rhonchi and no wheezes Cardiovascular: RRR, no murmur, no edema Chest (Breasts): Chest: normal inspection of chest Gastrointestinal (Abdomen): normal bowel sounds, soft, nontender, no hepatosplenomegaly Musculoskeletal: Extremities: extremities normal to inspection; no cyanosis and no clubbing Skin: no rashes, warm and dry Neurologic: moves all extremities and awake; no focal motor deficits Psychiatric: A+Ox3, euthymic affect Lymphatic: no lymphedema Results & Data Results & Data ([facility]) Vital Signs (Past 12 Hours) Vital Signs Temp Pulse Pulse Resp BP Pulse Ox 05/28/20 09:03 51 L 05/28/20 03:57 36.3 C L 52 L 20 119/64 94 Laboratory Results 05/28/20 05/28/20 05/28/20 Range/Units 07:49 07:49 07:49 WBC (4.8-10.8) K/uL RBC (4.2-5.4) M/uL Hgb (12.0-16.0) g/dL Hct (37-47) % MCV (80-100) fL MCH (25-34) pg MCHC (32-36) g/dL RDW Std Deviation (36.4-46.3) fL RDW Coeff of Vince (11.5-14.5) % Plt Count (130-400) K/uL MPV (7.4-10.4) fL Immature Gran % (Auto) % Neut % (Auto) % Lymph % (Auto) % [place] % (Auto) % Eos % (Auto) % Baso % (Auto) % Neut # (Auto) (1.4-6.5) K/uL Lymph # (Auto) (1.2-3.4) K/uL [place] # (Auto) (0.11-0.59) K/uL Eos # (Auto) (0-0.5) K/uL Baso # (Auto) (0-0.2) K/uL Immature Gran # (Auto) (0.00-0.02) K/uL D-Dimer 2310 H* (0-500) ug/L FEU Sodium 142 (136-145) mmol/L Potassium 3.7 (3.5-5.1) mmol/L Chloride 109 H (98-107) mmol/L Carbon Dioxide 26 (21-32) mmol/L Anion Gap 7.0 (3-11) BUN 17 D (7-18) mg/dl Creatinine 0.75 (0.6-1.2) mg/dl Est Cr Clr Drug Dosing 81.4 ml/min Est GFR ( Amer) 93.6 Est GFR (Non-Af Amer) 80.8 BUN/Creatinine Ratio 22.2 H (10-20) Glucose 103 H (70-99) mg/dl Calcium 8.6 (8.5-10.1) mg/dl Ferritin 436.2 H (8-388) ng/ml Total Bilirubin 0.5 (0.2-1) mg/dl AST 57 H (15-37) U/L ALT 37 (12-78) U/L Alkaline Phosphatase 57 (45-117) U/L Lactate Dehydrogenase 518 H (84-246) U/L Total Creatine Kinase 109 (26-192) U/L C-Reactive Protein 7.67 H (0-0.29) mg/dl Total Protein 6.8 (6.4-8.2) gm/dl Albumin 2.5 L (3.4-5.0) gm/dl Globulin 4.3 H (2.5-4.0) gm/dl Albumin/Globulin Ratio 0.6 L (0.9-2) 05/28/20 Range/Units 07:49 WBC 7.67 (4.8-10.8) K/uL RBC 4.52 (4.2-5.4) M/uL Hgb 13.0 (12.0-16.0) g/dL Hct 37.6 (37-47) % MCV 83.2 (80-100) fL MCH 28.8 (25-34) pg MCHC 34.6 (32-36) g/dL RDW Std Deviation 38.4 (36.4-46.3) fL RDW Coeff of Vince 12.7 (11.5-14.5) % Plt Count 327 (130-400) K/uL MPV 9.6 (7.4-10.4) fL Immature Gran % (Auto) 0.4 % Neut % (Auto) 82.6 % Lymph % (Auto) 10.0 % [place] % (Auto) 6.9 % Eos % (Auto) 0.0 % Baso % (Auto) 0.1 % Neut # (Auto) 6.33 (1.4-6.5) K/uL Lymph # (Auto) 0.77 L (1.2-3.4) K/uL [place] # (Auto) 0.53 (0.11-0.59) K/uL Eos # (Auto) 0.00 (0-0.5) K/uL Baso # (Auto) 0.01 (0-0.2) K/uL Immature Gran # (Auto) 0.03 H (0.00-0.02) K/uL D-Dimer (0-500) ug/L FEU Sodium (136-145) mmol/L Potassium (3.5-5.1) mmol/L Chloride (98-107) mmol/L Carbon Dioxide (21-32) mmol/L Anion Gap (3-11) BUN (7-18) mg/dl Creatinine (0.6-1.2) mg/dl Est Cr Clr Drug Dosing ml/min Est GFR ( Amer) Est GFR (Non-Af Amer) BUN/Creatinine Ratio (10-20) Glucose (70-99) mg/dl Calcium (8.5-10.1) mg/dl Ferritin (8-388) ng/ml Total Bilirubin (0.2-1) mg/dl AST (15-37) U/L ALT (12-78) U/L Alkaline Phosphatase (45-117) U/L Lactate Dehydrogenase (84-246) U/L Total Creatine Kinase (26-192) U/L C-Reactive Protein (0-0.29) mg/dl Total Protein (6.4-8.2) gm/dl Albumin (3.4-5.0) gm/dl Globulin (2.5-4.0) gm/dl Albumin/Globulin Ratio (0.9-2) Diagnostic Findings CT angiogram chest: IMPRESSION: 1. No pulmonary emboli identified although segmental and subsegmental pulmonary arteries suboptimally assessed due to respiratory motion. 2. Progression of extensive bilateral airspace opacities consistent with an infectious process. 3. Mildly enlarged subcarinal lymph node which is likely reactive. PG Care Time/CCT Total # of Minutes Spent Total Time Spent with Patient: Total time spent is greater than 50% in coordination of care (as documented) at patient's floor/unit and/or counseling patient: Coding Level of Care Code 67199 Subseq Hosp Care Lvl 3 Diagnoses Acute respiratory failure with hypoxia J96.01 Pneumonia due to COVID-19 virus U07.1; J12.89 Overactive bladder N32.81 Hypertension I10 Vitamin B12 deficiency E53.8 Anxiety and depression F41.9; F32.9 Breast cancer C50.919 DVT prophylaxis Z29.9
[2020-05-28] MEDS: REMDESIVIR 100 MG in SODIUM CHLORIDE 0.9% 230 ML IV SCH (12:23)
[2020-05-28] MEDS: SODIUM CHLORIDE 0.9% 10ML FLUSH IV SCH (14:03)
[2020-05-28] MEDS: ATENOLOL 25 MG TABLET PO SCH (20:39)
[2020-05-28] MEDS: MELATONIN 3 MG TAB PO PRN (20:55)
[2020-05-29] MEDS: ENOXAPARIN INJ 40 MG/0.4 ML SYR SQ SCH ×2 (08:34→20:33)
[2020-05-29] MEDS: ZINC SULFATE 220 MG CAPSULE PO SCH (08:34)
[2020-05-29] MEDS: CHOLECALCIFEROL 1,000 UNITS 25 MCG TAB PO SCH (08:35)
[2020-05-29] MEDS: CYANOCOBALAMIN (VITAMIN B-12) 2,500 MCG TAB.SUBL SL SCH (08:35)
[2020-05-29] MEDS: VENLAFAXINE HCL XR 75 MG CAPXR PO SCH (08:35)
[2020-05-29] MEDS: dexAMETHasone 6 MG in SYRINGE 0 ML IV SCH (09:35)
[2020-05-29] MEDS: SODIUM CHLORIDE 0.9% 10ML FLUSH IV SCH (09:36)
[2020-05-29 11:07] LABS: Basophils # (auto) 0.01 K/uL (0-0.2); Basophils % (auto) 0.1 %; Eosinophils # (auto) 0.02 K/uL (0-0.5); Eosinophils % (auto) 0.2 %; Hematocrit (blood only) 35.2 % (37-47); Hemoglobin 12.2 g/dL (12.0-16.0); Immature Granulocytes # (auto) 0.08 K/uL (0.00-0.02); Immature Granulocytes % (auto) 0.8 %; Lymphocytes # (auto) 0.91 K/uL (1.2-3.4); Lymphocytes % (auto) 9.6 %; Mean Corpuscular Hemoglobin 28.8 pg (25-34); Mean Corpuscular Hgb Conc 34.7 g/dL (32-36); Mean Corpuscular Volume 83.2 fL (80-100); Mean Platelet Volume 9.2 fL (7.4-10.4); Monocytes # (auto) 0.67 K/uL (0.11-0.59); Monocytes % (auto) 7.1 %; Neutrophils # (auto) 7.77 K/uL (1.4-6.5); Neutrophils % (auto) 82.2 %; Platelet Count 359 K/uL (130-400); RDW Coefficient of Variation 12.8 % (11.5-14.5); RDW Standard Deviation 38.6 fL (36.4-46.3); Red Blood Count 4.23 M/uL (4.2-5.4); White Blood Count 9.46 K/uL (4.8-10.8)
[2020-05-29 11:24] LABS: Albumin Level 2.4 gm/dl (3.4-5.0); BUN Creatinine Ratio 30.8 (10-20); Calcium 8.5 mg/dl (8.5-10.1); Est GFR (African American) 109.5; Est GFR (Non-African American) 94.5; Magnesium 2.3 mg/dl (1.8-2.4); Potassium 3.3 mmol/L (3.5-5.1)
[2020-05-29 11:26] LABS: Albumin Globulin Ratio 0.6 (0.9-2); Bilirubin,Total 0.3 mg/dl (0.2-1); C Reactive Protein 3.3 mg/dl (0-0.29); Globulin 4.1 gm/dl (2.5-4.0); Phosphorus 2.6 mg/dl (2.5-4.9); Total Protein 6.5 gm/dl (6.4-8.2)
[2020-05-29] MEDS ORDERED: POTASSIUM CHLORIDE CRTAB 20 MEQ TABCR PO STA (11:49)
[2020-05-29] MEDS: REMDESIVIR 100 MG in SODIUM CHLORIDE 0.9% 230 ML IV SCH (12:14)
--- NOTE | 2020-05-29 13:48 | Hospitalist Progress Note ---
Date of Service May 29, 2020 Assessment & Plan (1) Acute respiratory failure with hypoxia: Acute respiratory failure with hypoxia/bilateral pneumonia due to COVID-19 virus-symptoms started on 05/07 and her test was positive at an urgent care on 05/09 Had GI symptoms, and progressively worsening shortness of breath since that time. Was found to have a pulse ox of 80% on room air upon arrival Initially with high oxygen requirement of 15 L oxygen mask on the morning of 05/28-converted to high flow nasal cannula so she can eat and drink without taking off oxygen and may also provide some PEEP D-dimer is elevated at 2310, CT angiogram chest on 05/28 is negative for PE, but shows bilateral extensive infiltrates She is unable to prone she thinks but will try to lie on her side Discussed care with pulmonology on 05/28-recommends nightly BiPAP 05/10 which she tried x 1 night but could not tolerate Weaned down now to 45% FiO2 and 25L HFNC, improved LFTs improving Continue dexamethasone 6 mg IV every morning x10-day course Continue remdesivir IV once daily for severe disease despite being outside the usual 7-10 day window Convalescent plasma not given as not likely to benefit this far out Continue Ventolin HFA 2 puffs 4 times daily Ceftriaxone 1 g IV daily and azithromycin 500 mg IV daily given initially but then discontinued, procalcitonin negative Continue zinc sulfate daily -add flutter valve -Follow CBC, CMP, ESR, CRP periodically (2) Pneumonia due to COVID-19 virus: See above (3) Overactive bladder: Holding Toviaz (4) Hypertension: Blood pressures are controlled Continue atenolol 25 mg daily with hold parameters (5) Vitamin B12 deficiency: Continue vitamin B12 supplement 5000 mcg p.o. every morning (6) Anxiety and depression: Stable Continue venlafaxine 75 mg p.o. every morning (7) Breast cancer: History of such, not ongoing (8) DVT prophylaxis: Lovenox 40 mg SQ twice daily Disposition-continued stay in PCU Admission and Anticipated Discharge Date Admission Date: May 27, 2020 Subjective Feels a little less SOB today. Was OOB to chair and did not cause as much PATEL. Has been umakin gurine, moving bowels, eating well. Feels exhausted from sitting in bed, denies chest pain. Weaned down FiO2 today Tele with NSR, rates 50-60s Review of Systems Review of Systems: All systems reviewed & are unremarkable except as noted in HPI & below Physical Exam Constitutional: WD/WN, vitals as above + obese Eyes: + anicteric sclerae Neck: trachea midline, no thyromegaly Respiratory: normal respiratory effort Auscultation: + crackles (only at left base); no diminished lung sounds (improved air movement throughout), no rhonchi and no wheezes Cardiovascular: RRR, no murmur, no edema Chest (Breasts): Chest: normal inspection of chest Gastrointestinal (Abdomen): normal bowel sounds, soft, nontender, no hepatosplenomegaly Musculoskeletal: Extremities: extremities normal to inspection; no cyanosis and no clubbing Skin: no rashes, warm and dry Neurologic: moves all extremities and awake; no focal motor deficits Psychiatric: A+Ox3, euthymic affect Lymphatic: no lymphedema Results & Data Results & Data ([facility]) Vital Signs (Past 12 Hours) Vital Signs Temp Pulse Pulse Resp BP BP Pulse Ox 05/29/20 12:12 36.6 C 66 20 119/70 90 05/29/20 10:59 63 21 92 05/29/20 08:00 61 05/29/20 07:44 36.4 C L 61 24 166/77 H 93 05/29/20 07:15 60 20 94 05/29/20 05:49 50 L 20 94 05/29/20 04:00 36.4 C L 56 L 22 132/73 95 Laboratory Results 05/29/20 05/29/20 Range/Units 10:57 10:57 WBC 9.46 (4.8-10.8) K/uL RBC 4.23 (4.2-5.4) M/uL Hgb 12.2 (12.0-16.0) g/dL Hct 35.2 L (37-47) % MCV 83.2 (80-100) fL MCH 28.8 (25-34) pg MCHC 34.7 (32-36) g/dL RDW Std Deviation 38.6 (36.4-46.3) fL RDW Coeff of Vince 12.8 (11.5-14.5) % Plt Count 359 (130-400) K/uL MPV 9.2 (7.4-10.4) fL Immature Gran % (Auto) 0.8 % Neut % (Auto) 82.2 % Lymph % (Auto) 9.6 % [place] % (Auto) 7.1 % Eos % (Auto) 0.2 % Baso % (Auto) 0.1 % Neut # (Auto) 7.77 H (1.4-6.5) K/uL Lymph # (Auto) 0.91 L (1.2-3.4) K/uL [place] # (Auto) 0.67 H (0.11-0.59) K/uL Eos # (Auto) 0.02 (0-0.5) K/uL Baso # (Auto) 0.01 (0-0.2) K/uL Immature Gran # (Auto) 0.08 H (0.00-0.02) K/uL Sodium 140 (136-145) mmol/L Potassium 3.3 L (3.5-5.1) mmol/L Chloride 107 (98-107) mmol/L Carbon Dioxide 26 (21-32) mmol/L Anion Gap 7.0 (3-11) BUN 17 (7-18) mg/dl Creatinine 0.56 L (0.6-1.2) mg/dl Est Cr Clr Drug Dosing 105.0 ml/min Est GFR ( Amer) 109.5 Est GFR (Non-Af Amer) 94.5 BUN/Creatinine Ratio 30.8 H (10-20) Glucose 109 H (70-99) mg/dl Calcium 8.5 (8.5-10.1) mg/dl Phosphorus 2.6 (2.5-4.9) mg/dl Magnesium 2.3 (1.8-2.4) mg/dl Total Bilirubin 0.3 (0.2-1) mg/dl AST 42 H (15-37) U/L ALT 32 (12-78) U/L Alkaline Phosphatase 56 (45-117) U/L C-Reactive Protein 3.30 H (0-0.29) mg/dl Total Protein 6.5 (6.4-8.2) gm/dl Albumin 2.4 L (3.4-5.0) gm/dl Globulin 4.1 H (2.5-4.0) gm/dl Albumin/Globulin Ratio 0.6 L (0.9-2) PG Care Time/CCT Total # of Minutes Spent Total Time Spent with Patient: Total time spent is greater than 50% in coordination of care (as documented) at patient's floor/unit and/or counseling patient: Coding Level of Care Code 20571 Subseq Hosp Care Lvl 3 Diagnoses Acute respiratory failure with hypoxia J96.01 Pneumonia due to COVID-19 virus U07.1; J12.89 Overactive bladder N32.81 Hypertension I10 Vitamin B12 deficiency E53.8 Anxiety and depression F41.9; F32.9 Breast cancer C50.919 DVT prophylaxis Z29.9
[2020-05-29] MEDS: ATENOLOL 25 MG TABLET PO SCH (20:33)
[2020-05-29] MEDS: MELATONIN 3 MG TAB PO PRN (20:40)
[2020-05-30 08:10] LABS: Basophils # (auto) 0.01 K/uL (0-0.2); Basophils % (auto) 0.1 %; Eosinophils # (auto) 0.05 K/uL (0-0.5); Eosinophils % (auto) 0.6 %; Hematocrit (blood only) 34.8 % (37-47); Hemoglobin 11.9 g/dL (12.0-16.0); Immature Granulocytes % (auto) 1.1 %; Lymphocytes # (auto) 1.34 K/uL (1.2-3.4); Lymphocytes % (auto) 15.3 %; Mean Corpuscular Hemoglobin 28.5 pg (25-34); Mean Corpuscular Hgb Conc 34.2 g/dL (32-36); Mean Corpuscular Volume 83.3 fL (80-100); Mean Platelet Volume 9.1 fL (7.4-10.4); Monocytes % (auto) 6.8 %; Neutrophils # (auto) 6.67 K/uL (1.4-6.5); Neutrophils % (auto) 76.1 %; Platelet Count 363 K/uL (130-400); RDW Coefficient of Variation 12.7 % (11.5-14.5); RDW Standard Deviation 38.7 fL (36.4-46.3); Red Blood Count 4.18 M/uL (4.2-5.4); White Blood Count 8.77 K/uL (4.8-10.8)
[2020-05-30 08:47] LABS: Albumin Level 2.4 gm/dl (3.4-5.0); Calcium 8.6 mg/dl (8.5-10.1); Creatinine Clr Calc Pharmacy 96.5 ml/min; Est GFR (Non-African American) 92.4; Magnesium 2.1 mg/dl (1.8-2.4); Potassium 3.9 mmol/L (3.5-5.1)
[2020-05-30 08:52] LABS: Albumin Globulin Ratio 0.6 (0.9-2); Bilirubin,Total 0.4 mg/dl (0.2-1); Globulin 3.7 gm/dl (2.5-4.0); Total Protein 6.1 gm/dl (6.4-8.2)
[2020-05-30] MEDS: SODIUM CHLORIDE 0.9% 10ML FLUSH IV SCH (10:10)
[2020-05-30] MEDS: dexAMETHasone 6 MG in SYRINGE 0 ML IV SCH (10:11)
[2020-05-30] MEDS: ENOXAPARIN INJ 40 MG/0.4 ML SYR SQ SCH ×2 (10:13→21:11)
[2020-05-30] MEDS: VENLAFAXINE HCL XR 75 MG CAPXR PO SCH (10:13)
[2020-05-30] MEDS: ZINC SULFATE 220 MG CAPSULE PO SCH (10:14)
[2020-05-30] MEDS: CHOLECALCIFEROL 1,000 UNITS 25 MCG TAB PO SCH (10:14)
[2020-05-30] MEDS: CYANOCOBALAMIN (VITAMIN B-12) 2,500 MCG TAB.SUBL SL SCH (10:16)
[2020-05-30] MEDS: REMDESIVIR 100 MG in SODIUM CHLORIDE 0.9% 230 ML IV SCH (12:39)
--- NOTE | 2020-05-30 14:40 | Hospitalist Progress Note ---
Date of Service May 30, 2020 Assessment & Plan (1) Acute respiratory failure with hypoxia: Acute respiratory failure with hypoxia/bilateral pneumonia due to COVID-19 virus-symptoms started on 05/07 and her test was positive at an urgent care on 05/09 Had GI symptoms, and progressively worsening shortness of breath since that time. Was found to have a pulse ox of 80% on room air upon arrival Initially with high oxygen requirement of 15 L oxygen mask on the morning of 05/28-converted to high flow nasal cannula so she can eat and drink without taking off oxygen and may also provide some PEEP D-dimer is elevated at 2310, CT angiogram chest on 05/28 is negative for PE, but shows bilateral extensive infiltrates Now much improved, weaned down to 4LNC on 05/30 able to lie prone now at times Discussed care with pulmonology on 05/28-recommends nightly BiPAP 05/10 which she tried x 1 night but could not tolerate LFTs improving Continue dexamethasone 6 mg IV every morning x10-day course Continue remdesivir IV once daily for severe disease despite being outside the usual 7-10 day window Convalescent plasma not given as not likely to benefit this far out Continue Ventolin HFA 2 puffs 4 times daily Ceftriaxone 1 g IV daily and azithromycin 500 mg IV daily given initially but then discontinued, procalcitonin negative Continue zinc sulfate daily -continue flutter valve -Follow CBC, CMP, ESR, CRP periodically (2) Pneumonia due to COVID-19 virus: See above (3) Overactive bladder: Holding Toviaz (4) Hypertension: Blood pressures are controlled Continue atenolol 25 mg daily with hold parameters (5) Vitamin B12 deficiency: Continue vitamin B12 supplement 5000 mcg p.o. every morning (6) Anxiety and depression: Stable Continue venlafaxine 75 mg p.o. every morning (7) Breast cancer: History of such, not ongoing (8) Constipation: no BM in many days, feels bloated -start senna/docusate (9) DVT prophylaxis: Lovenox 40 mg SQ twice daily Disposition-continued stay in PCU, improving, consider downgrade to medical tomorrow if continues to improve Admission and Anticipated Discharge Date Admission Date: May 27, 2020 Subjective Pt feeling much better today, was weaned off HFNC to 4LNC. She has been a mbulating a little more around the room. Not much cough. Hasn't moved her bowels in many days and feels bloated. Was happy seeing her son today as he works at the hospital. Tele with SB, PACs, 40s-60s Review of Systems Review of Systems: All systems reviewed & are unremarkable except as noted in HPI & below Physical Exam Constitutional: WD/WN, vitals as above Eyes: + anicteric sclerae Neck: trachea midline, no thyromegaly Respiratory: normal respiratory effort Auscultation: + crackles (only at left base); no diminished lung sounds (improved air movement throughout), no rhonchi and no wheezes Cardiovascular: RRR, no murmur, no edema Chest (Breasts): Chest: normal inspection of chest Gastrointestinal (Abdomen): normal bowel sounds, soft, nontender, no hepatosplenomegaly Musculoskeletal: Extremities: extremities normal to inspection; no cyanosis and no clubbing Skin: no rashes, warm and dry Neurologic: moves all extremities and awake; no focal motor deficits Psychiatric: A+Ox3, euthymic affect Lymphatic: no lymphedema Results & Data Results & Data ([facility]) Vital Signs (Past 12 Hours) Vital Signs Temp Pulse Pulse Pulse Resp BP BP 05/30/20 11:09 36.7 C 59 L 59 L 22 120/75 05/30/20 08:31 36.4 C L 57 L 20 113/69 05/30/20 08:00 52 L 05/30/20 07:45 63 20 05/30/20 04:20 36.7 C 58 L 19 158/67 H Pulse Ox 05/30/20 11:09 97 05/30/20 08:31 94 05/30/20 08:00 05/30/20 07:45 92 05/30/20 04:20 97 Laboratory Results 05/30/20 05/30/20 Range/Units 07:08 07:08 WBC 8.77 (4.8-10.8) K/uL RBC 4.18 L (4.2-5.4) M/uL Hgb 11.9 L (12.0-16.0) g/dL Hct 34.8 L (37-47) % MCV 83.3 (80-100) fL MCH 28.5 (25-34) pg MCHC 34.2 (32-36) g/dL RDW Std Deviation 38.7 (36.4-46.3) fL RDW Coeff of Vince 12.7 (11.5-14.5) % Plt Count 363 (130-400) K/uL MPV 9.1 (7.4-10.4) fL Immature Gran % (Auto) 1.1 % Neut % (Auto) 76.1 % Lymph % (Auto) 15.3 % [place] % (Auto) 6.8 % Eos % (Auto) 0.6 % Baso % (Auto) 0.1 % Neut # (Auto) 6.67 H (1.4-6.5) K/uL Lymph # (Auto) 1.34 (1.2-3.4) K/uL [place] # (Auto) 0.60 H (0.11-0.59) K/uL Eos # (Auto) 0.05 (0-0.5) K/uL Baso # (Auto) 0.01 (0-0.2) K/uL Immature Gran # (Auto) 0.10 H (0.00-0.02) K/uL Sodium 143 (136-145) mmol/L Potassium 3.9 D (3.5-5.1) mmol/L Chloride 110 H (98-107) mmol/L Carbon Dioxide 26 (21-32) mmol/L Anion Gap 6.0 (3-11) BUN 16 (7-18) mg/dl Creatinine 0.60 (0.6-1.2) mg/dl Est Cr Clr Drug Dosing 96.5 ml/min Est GFR ( Amer) 107.0 Est GFR (Non-Af Amer) 92.4 BUN/Creatinine Ratio 27.0 H (10-20) Glucose 78 (70-99) mg/dl Calcium 8.6 (8.5-10.1) mg/dl Magnesium 2.1 (1.8-2.4) mg/dl Total Bilirubin 0.4 (0.2-1) mg/dl AST 33 (15-37) U/L ALT 29 (12-78) U/L Alkaline Phosphatase 53 (45-117) U/L Total Protein 6.1 L (6.4-8.2) gm/dl Albumin 2.4 L (3.4-5.0) gm/dl Globulin 3.7 (2.5-4.0) gm/dl Albumin/Globulin Ratio 0.6 L (0.9-2) PG Care Time/CCT Total # of Minutes Spent Total Time Spent with Patient: Total time spent is greater than 50% in coordination of care (as documented) at patient's floor/unit and/or counseling patient: Coding Level of Care Code 75612 Subseq Hosp Care Lvl 2 Diagnoses Acute respiratory failure with hypoxia J96.01 Pneumonia due to COVID-19 virus U07.1; J12.89 Overactive bladder N32.81 Hypertension I10 Vitamin B12 deficiency E53.8 Anxiety and depression F41.9; F32.9 Breast cancer C50.919 Constipation K59.00 DVT prophylaxis Z29.9
[2020-05-30] MEDS: DOCUSATE SODIUM/SENNA 50/8.6MG TAB PO SCH (16:18)
[2020-05-30] MEDS: ATENOLOL 25 MG TABLET PO SCH (21:03)
[2020-05-30] MEDS: MELATONIN 3 MG TAB PO PRN (21:10)
[2020-05-31 07:02] LABS: Basophils # (auto) 0.02 K/uL (0-0.2); Basophils % (auto) 0.2 %; Eosinophils # (auto) 0.06 K/uL (0-0.5); Eosinophils % (auto) 0.7 %; Hematocrit (blood only) 35.5 % (37-47); Immature Granulocytes # (auto) 0.35 K/uL (0.00-0.02); Lymphocytes % (auto) 12.7 %; Mean Corpuscular Hemoglobin 28.4 pg (25-34); Mean Corpuscular Hgb Conc 33.8 g/dL (32-36); Mean Corpuscular Volume 83.9 fL (80-100); Mean Platelet Volume 9.1 fL (7.4-10.4); Monocytes # (auto) 0.63 K/uL (0.11-0.59); Monocytes % (auto) 7.3 %; Neutrophils % (auto) 75.1 %; Platelet Count 337 K/uL (130-400); RDW Coefficient of Variation 12.6 % (11.5-14.5); RDW Standard Deviation 38.4 fL (36.4-46.3); Red Blood Count 4.23 M/uL (4.2-5.4); White Blood Count 8.66 K/uL (4.8-10.8)
[2020-05-31 07:32] LABS: Albumin Level 2.3 gm/dl (3.4-5.0); BUN Creatinine Ratio 22.5 (10-20); Calcium 8.1 mg/dl (8.5-10.1); Est GFR (African American) 108.2; Est GFR (Non-African American) 93.4; Potassium 3.8 mmol/L (3.5-5.1)
[2020-05-31 07:39] LABS: Albumin Globulin Ratio 0.6 (0.9-2); Bilirubin,Total 0.4 mg/dl (0.2-1); Globulin 3.8 gm/dl (2.5-4.0); Total Protein 6.1 gm/dl (6.4-8.2)
[2020-05-31] MEDS: SODIUM CHLORIDE 0.9% 10ML FLUSH IV SCH (08:50)
[2020-05-31] MEDS: dexAMETHasone 6 MG in SYRINGE 0 ML IV SCH (08:53)
[2020-05-31] MEDS: ENOXAPARIN INJ 40 MG/0.4 ML SYR SQ SCH ×2 (08:54→20:16)
[2020-05-31] MEDS: VENLAFAXINE HCL XR 75 MG CAPXR PO SCH (08:54)
[2020-05-31] MEDS: CYANOCOBALAMIN (VITAMIN B-12) 2,500 MCG TAB.SUBL SL SCH (08:55)
[2020-05-31] MEDS: DOCUSATE SODIUM/SENNA 50/8.6MG TAB PO SCH (08:55)
[2020-05-31] MEDS: ZINC SULFATE 220 MG CAPSULE PO SCH (08:56)
[2020-05-31] MEDS: CHOLECALCIFEROL 1,000 UNITS 25 MCG TAB PO SCH (08:56)
--- NOTE | 2020-05-31 12:06 | Hospitalist Progress Note ---
Date of Service May 31, 2020 Assessment & Plan (1) Acute respiratory failure with hypoxia: Acute respiratory failure with hypoxia/bilateral pneumonia due to COVID-19 virus-symptoms started on 05/07 and her test was positive at an urgent care on 05/09 Had GI symptoms, and progressively worsening shortness of breath since that time. Was found to have a pulse ox of 80% on room air upon arrival Initially with high oxygen requirement of 15 L oxygen mask on the morning of 05/28-converted to high flow nasal cannula so she can eat and drink without taking off oxygen and may also provide some PEEP D-dimer is elevated at 2310, CT angiogram chest on 05/28 is negative for PE, but shows bilateral extensive infiltrates Now much improved, weaned down to 4-5 LNC since 05/30. Is breathing more easily and is able to ambulate short distances around her room able to lie prone now at times Discussed care with pulmonology on 05/28-recommends nightly BiPAP 05/10 which she tried x 1 night but could not tolerate LFTs improving Blood cultures remain no growth to date Continue dexamethasone 6 mg IV every morning x10-day course-last dose will be 06/05 Continue remdesivir IV once daily for severe disease despite being outside the usual 7-10 day window-last dose will be 05/31 Convalescent plasma not given as not likely to benefit this far out Continue Ventolin HFA 2 puffs 4 times daily Ceftriaxone 1 g IV daily and azithromycin 500 mg IV daily given initially but then discontinued, procalcitonin negative Continue zinc sulfate daily -continue flutter valve, incentive spirometer -Follow CBC, CMP, ESR, CRP periodically (2) Pneumonia due to COVID-19 virus: See above (3) Bradycardia: Heart rate consistently in the 40s and 50s during the day and drops in the upper 30s sometimes at night She is asymptomatic with this during the day She may have sleep apnea which is undiagnosed causing bradycardia at nighttime Was recently started on atenolol 1 month ago as an outpatient for hypertension Discontinue atenolol at this time Continue to monitor on telemetry (4) Overactive bladder: Holding Toviaz (5) Hypertension: Blood pressures are controlled Discontinue atenolol as above for bradycardia Blood pressures go too high, will start amlodipine instead (6) Vitamin B12 deficiency: Continue vitamin B12 supplement 5000 mcg p.o. every morning (7) Anxiety and depression: Stable Continue venlafaxine 75 mg p.o. every morning (8) Breast cancer: History of such, not ongoing (9) Constipation: no BM in many days, feels bloated -Continue senna/docusate MiraLAX as needed (10) DVT prophylaxis: Lovenox 40 mg SQ twice daily Disposition-continued stay in PCU, stable from yesterday-consider downgrade to medical tomorrow if continues to improve Admission and Anticipated Discharge Date Admission Date: May 27, 2020 Subjective Patient reports feeling much better today, is breathing more easily. She was walking short distances around the room without as much shortness of breath. Has a minimal cough. Was happy that her son came to visit her yesterday. Denies chest pain, no lightheadedness. She still has not moved her bowels but feels like it might happen soon. Telemetry with sinus bradycardia with rates in the 40s to 50s with a brief drop to 38 overnight. Patient reports she was started on atenolol just about a month ago by her primary care physician Review of Systems Review of Systems: All systems reviewed & are unremarkable except as noted in HPI & below Physical Exam Constitutional: WD/WN, vitals as above Eyes: + anicteric sclerae Neck: trachea midline, no thyromegaly Respiratory: normal respiratory effort Auscultation: + crackles (only at left base); no diminished lung sounds (improved air movement throughout), no rhonchi and no wheezes Cardiovascular: Rate/Rhythm: regular rate and + bradycardic Heart Sounds: no murmur Extremities: no calf tenderness and no edema Chest (Breasts): Chest: normal inspection of chest Gastrointestinal (Abdomen): normal bowel sounds, soft, nontender, no hepatosplenomegaly Musculoskeletal: Extremities: extremities normal to inspection; no cyanosis and no clubbing Skin: no rashes, warm and dry Neurologic: moves all extremities and awake; no focal motor deficits Psychiatric: A+Ox3, euthymic affect Lymphatic: no lymphedema Results & Data Results & Data ([facility]) Vital Signs (Past 12 Hours) Vital Signs Temp Pulse Pulse Resp BP BP Pulse Ox 05/31/20 08:49 92 05/31/20 08:48 36.4 C L 55 L 22 147/76 H 89 L 05/31/20 08:00 48 L 05/31/20 03:45 36.4 C L 55 L 20 174/70 H 94 05/31/20 00:09 36.3 C L 57 L 18 153/72 H 93 Laboratory Results 05/31/20 05/31/20 Range/Units 06:03 06:03 WBC 8.66 (4.8-10.8) K/uL RBC 4.23 (4.2-5.4) M/uL Hgb 12.0 (12.0-16.0) g/dL Hct 35.5 L (37-47) % MCV 83.9 (80-100) fL MCH 28.4 (25-34) pg MCHC 33.8 (32-36) g/dL RDW Std Deviation 38.4 (36.4-46.3) fL RDW Coeff of Vince 12.6 (11.5-14.5) % Plt Count 337 (130-400) K/uL MPV 9.1 (7.4-10.4) fL Immature Gran % (Auto) 4.0 % Neut % (Auto) 75.1 % Lymph % (Auto) 12.7 % [place] % (Auto) 7.3 % Eos % (Auto) 0.7 % Baso % (Auto) 0.2 % Neut # (Auto) 6.50 (1.4-6.5) K/uL Lymph # (Auto) 1.10 L (1.2-3.4) K/uL [place] # (Auto) 0.63 H (0.11-0.59) K/uL Eos # (Auto) 0.06 (0-0.5) K/uL Baso # (Auto) 0.02 (0-0.2) K/uL Immature Gran # (Auto) 0.35 H (0.00-0.02) K/uL Sodium 141 (136-145) mmol/L Potassium 3.8 (3.5-5.1) mmol/L Chloride 109 H (98-107) mmol/L Carbon Dioxide 28 (21-32) mmol/L Anion Gap 4.0 (3-11) BUN 13 (7-18) mg/dl Creatinine 0.58 L (0.6-1.2) mg/dl Est Cr Clr Drug Dosing 102.0 ml/min Est GFR ( Amer) 108.2 Est GFR (Non-Af Amer) 93.4 BUN/Creatinine Ratio 22.5 H (10-20) Glucose 94 (70-99) mg/dl Calcium 8.1 L (8.5-10.1) mg/dl Total Bilirubin 0.4 (0.2-1) mg/dl AST 26 (15-37) U/L ALT 26 (12-78) U/L Alkaline Phosphatase 63 (45-117) U/L Total Protein 6.1 L (6.4-8.2) gm/dl Albumin 2.3 L (3.4-5.0) gm/dl Globulin 3.8 (2.5-4.0) gm/dl Albumin/Globulin Ratio 0.6 L (0.9-2) PG Care Time/CCT Total # of Minutes Spent Total Time Spent with Patient: Total time spent is greater than 50% in coordination of care (as documented) at patient's floor/unit and/or counseling patient: Coding Level of Care Code 52966 Subseq Hosp Care Lvl 3 Diagnoses Acute respiratory failure with hypoxia J96.01 Pneumonia due to COVID-19 virus U07.1; J12.89 Bradycardia R00.1 Overactive bladder N32.81 Hypertension I10 Vitamin B12 deficiency E53.8 Anxiety and depression F41.9; F32.9 Breast cancer C50.919 Constipation K59.00 DVT prophylaxis Z29.9
[2020-05-31] MEDS: REMDESIVIR 100 MG in SODIUM CHLORIDE 0.9% 230 ML IV SCH (12:13)
[2020-06-01 06:24] LABS: Basophils # (auto) 0.02 K/uL (0-0.2); Basophils % (auto) 0.2 %; Eosinophils # (auto) 0.05 K/uL (0-0.5); Eosinophils % (auto) 0.5 %; Hematocrit (blood only) 36.5 % (37-47); Hemoglobin 12.3 g/dL (12.0-16.0); Immature Granulocytes # (auto) 0.47 K/uL (0.00-0.02); Immature Granulocytes % (auto) 4.5 %; Lymphocytes # (auto) 1.48 K/uL (1.2-3.4); Lymphocytes % (auto) 14.3 %; Mean Corpuscular Hemoglobin 28.2 pg (25-34); Mean Corpuscular Hgb Conc 33.7 g/dL (32-36); Mean Corpuscular Volume 83.7 fL (80-100); Mean Platelet Volume 9.1 fL (7.4-10.4); Monocytes # (auto) 0.75 K/uL (0.11-0.59); Monocytes % (auto) 7.2 %; Neutrophils % (auto) 73.3 %; Platelet Count 333 K/uL (130-400); RDW Coefficient of Variation 12.6 % (11.5-14.5); RDW Standard Deviation 38.2 fL (36.4-46.3); Red Blood Count 4.36 M/uL (4.2-5.4); White Blood Count 10.37 K/uL (4.8-10.8)
[2020-06-01 06:54] LABS: Albumin Level 2.3 gm/dl (3.4-5.0); BUN Creatinine Ratio 29.1 (10-20); Calcium 8.3 mg/dl (8.5-10.1); Creatinine Clr Calc Pharmacy 107.5 ml/min; Est GFR (African American) 110.1
[2020-06-01 06:57] LABS: Albumin Globulin Ratio 0.6 (0.9-2); Bilirubin,Total 0.3 mg/dl (0.2-1); Globulin 3.7 gm/dl (2.5-4.0); Phosphorus 3.7 mg/dl (2.5-4.9)
[2020-06-01] MEDS: dexAMETHasone 6 MG in SYRINGE 0 ML IV SCH (09:43)
[2020-06-01] MEDS: CYANOCOBALAMIN (VITAMIN B-12) 2,500 MCG TAB.SUBL SL SCH (09:46)
[2020-06-01] MEDS: ENOXAPARIN INJ 40 MG/0.4 ML SYR SQ SCH ×2 (09:46→20:22)
[2020-06-01] MEDS: DOCUSATE SODIUM/SENNA 50/8.6MG TAB PO SCH (09:46)
[2020-06-01] MEDS: CHOLECALCIFEROL 1,000 UNITS 25 MCG TAB PO SCH (09:46)
[2020-06-01] MEDS: VENLAFAXINE HCL XR 75 MG CAPXR PO SCH (09:46)
[2020-06-01] MEDS: ZINC SULFATE 220 MG CAPSULE PO SCH (09:47)
[2020-06-01] MEDS ORDERED: CALCIUM CARBONATE 500 MG CHEWABLE TAB PO PRN (15:37)
--- NOTE | 2020-06-01 15:51 | Hospitalist Progress Note ---
Date of Service June 01, 2020 Assessment & Plan (1) Acute respiratory failure with hypoxia: Acute respiratory failure with hypoxia/bilateral pneumonia due to COVID-19 virus-symptoms started on 05/07 and her test was positive at an urgent care on 05/09 Had GI symptoms, and progressively worsening shortness of breath since that time. Was found to have a pulse ox of 80% on room air upon arrival Initially with high oxygen requirement of 15 L oxygen mask on the morning of 05/28-converted to high flow nasal cannula so she can eat and drink without taking off oxygen and may also provide some PEEP D-dimer is elevated at 2310, CT angiogram chest on 05/28 is negative for PE, but shows bilateral extensive infiltrates Now much improved, weaned down to 4 LNC since 05/30. Is breathing more easily and is able to ambulate short distances around her room able to lie prone now at times Discussed care with pulmonology on 05/28-recommends nightly BiPAP 05/10 which she tried x 1 night but could not tolerate LFTs improving Blood cultures remain no growth to date Continue dexamethasone 6 mg IV every morning x10-day course-last dose will be 1/3 Completed 5-day course of remdesivir for severe disease despite being outside the usual 7-10 day window Convalescent plasma not given as not likely to benefit this far out Continue Ventolin HFA 2 puffs 4 times daily as needed-she has not use this No antibiotics indicated, procalcitonin negative Continue zinc sulfate daily -continue flutter valve, incentive spirometer -Follow CBC, CMP, ESR, CRP periodically (2) Pneumonia due to COVID-19 virus: See above (3) Bradycardia: Heart rate consistently in the 40s and 50s during the day and drops in the upper 30s sometimes at night She is asymptomatic with this during the day She may have sleep apnea which is undiagnosed causing bradycardia at nighttime Was recently started on atenolol 1 month ago as an outpatient for hypertension Discontinued atenolol and now heart rate is improved to the 50s to 60s Continue to monitor on telemetry for 1 more day (4) Overactive bladder: Holding Toviaz (5) Hypertension: Blood pressures are controlled Discontinue atenolol as above for bradycardia Blood pressures go too high, will start amlodipine instead (6) Vitamin B12 deficiency: Continue vitamin B12 supplement 5000 mcg p.o. every morning (7) Anxiety and depression: Stable Continue venlafaxine 75 mg p.o. every morning (8) Breast cancer: History of such, not ongoing (9) Constipation: Now resolved -Continue senna/docusate MiraLAX as needed (10) DVT prophylaxis: Lovenox 40 mg SQ twice daily Disposition-continued stay in PCU, stable from yesterday-consider downgrade to medical tomorrow if continues to improve Admission and Anticipated Discharge Date Admission Date: May 27, 2020 Subjective Reports feeling even better today. Remains on 4 L nasal cannula and still with some shortness of breath but overall improved. She was able to stand up and wash her hair in the sink today. Still some cough with deep inspiration. Afebrile. No chest pain, no nausea or vomiting. Had a bowel movement today. Telemetry with normal sinus rhythm with rates in the 50s to 60s. Review of Systems Review of Systems: All systems reviewed & are unremarkable except as noted in HPI & below Physical Exam Constitutional: WD/WN, vitals as above + obese Eyes: + anicteric sclerae Neck: trachea midline, no thyromegaly Respiratory: normal respiratory effort Auscultation: + crackles (only at left base); no diminished lung sounds (improved air movement throughout), no rhonchi and no wheezes Cardiovascular: RRR, no murmur, no edema Chest (Breasts): Chest: normal inspection of chest Gastrointestinal (Abdomen): normal bowel sounds, soft, nontender, no hepatosplenomegaly Musculoskeletal: Extremities: extremities normal to inspection; no cyanosis and no clubbing Skin: no rashes, warm and dry Neurologic: moves all extremities and awake; no focal motor deficits Psychiatric: A+Ox3, euthymic affect Lymphatic: no lymphedema Results & Data Results & Data ([facility]) Vital Signs (Past 12 Hours) Vital Signs Temp Pulse Pulse Resp BP BP Pulse Ox 06/01/20 15:24 36.6 C 69 20 123/72 95 06/01/20 14:49 65 06/01/20 11:56 36.1 C L 64 18 118/72 95 06/01/20 08:00 52 L 06/01/20 07:32 36.3 C L 62 22 171/79 H 92 06/01/20 04:02 36.5 C 73 18 101/59 L 98 Laboratory Results 06/01/20 05:55 06/01/20 05:55 PG Care Time/CCT Total # of Minutes Spent Total Time Spent with Patient: Total time spent is greater than 50% in import coordination and production head rdination of care (as documented) at patient's floor/unit and/or counseling patient: Coding Level of Care Code 48629 Subseq Hosp Care Lvl 3 Diagnoses Acute respiratory failure with hypoxia J96.01 Pneumonia due to COVID-19 virus U07.1; J12.89 Bradycardia R00.1 Overactive bladder N32.81 Hypertension I10 Vitamin B12 deficiency E53.8 Anxiety and depression F41.9; F32.9 Breast cancer C50.919 Constipation K59.00 DVT prophylaxis Z29.9
[2020-06-01] MEDS: FAMOTIDINE 20 MG TAB PO SCH ×2 (16:48→20:22)
[2020-06-02] MEDS: FAMOTIDINE 20 MG TAB PO SCH ×2 (09:16→21:48)
[2020-06-02] MEDS: dexAMETHasone 6 MG in SYRINGE 0 ML IV SCH (09:16)
[2020-06-02] MEDS: ENOXAPARIN INJ 40 MG/0.4 ML SYR SQ SCH ×2 (09:17→21:49)
[2020-06-02] MEDS: VENLAFAXINE HCL XR 75 MG CAPXR PO SCH (09:18)
[2020-06-02] MEDS: CYANOCOBALAMIN (VITAMIN B-12) 2,500 MCG TAB.SUBL SL SCH (09:19)
[2020-06-02] MEDS: DOCUSATE SODIUM/SENNA 50/8.6MG TAB PO SCH (09:19)
[2020-06-02] MEDS: CHOLECALCIFEROL 1,000 UNITS 25 MCG TAB PO SCH (09:20)
[2020-06-02] MEDS: ZINC SULFATE 220 MG CAPSULE PO SCH (09:20)
--- NOTE | 2020-06-02 15:10 | Hospitalist Progress Note ---
Date of Service June 02, 2020 Assessment & Plan (1) Acute respiratory failure with hypoxia: Acute respiratory failure with hypoxia/bilateral pneumonia due to COVID-19 virus-symptoms started on 05/07 and her test was positive at an urgent care on 05/09 Had GI symptoms, and progressively worsening shortness of breath since that time. Was found to have a pulse ox of 80% on room air upon arrival On admission, D-dimer is elevated at 2310, CT angiogram chest on 05/28 is negative for PE, but shows bilateral extensive infiltrates Initially with high oxygen requirement of 15 L oxygen mask on the morning of 05/28-converted to high flow nasal cannula and is now weaned down to 3 L nasal cannula and doing much better LFTs improved Blood cultures remain no growth to date Continue dexamethasone 6 mg IV every morning x10-day course-last dose will be 1/3 Completed 5-day course of remdesivir for severe disease despite being outside the usual 7-10 day window Convalescent plasma not given as not likely to benefit this far out Continue Ventolin HFA 2 puffs 4 times daily as needed-she has not used this No antibiotics indicated, procalcitonin negative Continue zinc sulfate daily -continue flutter valve, incentive spirometer -Follow CBC, CMP, ESR, CRP periodically (2) Pneumonia due to COVID-19 virus: See above Should have follow-up chest x-ray in 3 to 4 weeks as an outpatient to ensure that infiltrates resolve (3) Bradycardia: Heart rate was consistently in the 40s and 50s during the day and dropped in the upper 30s sometimes at night She is asymptomatic with this during the day She may have sleep apnea which is undiagnosed causing bradycardia at nighttime Was recently started on atenolol 1 month ago as an outpatient for hypertension Discontinued atenolol and now heart rate is improved to the 50s to 70s Can transfer off telemetry (4) Overactive bladder: Holding Toviaz unless can be brought in from home (5) Hypertension: Blood pressures remain controlled Discontinue atenolol as above for bradycardia Blood pressures go too high, will start amlodipine instead (6) Vitamin B12 deficiency: Continue vitamin B12 supplement 5000 mcg p.o. every morning (7) Anxiety and depression: Stable Continue venlafaxine 75 mg p.o. every morning (8) Breast cancer: History of such, not ongoing (9) Constipation: Now resolved -Continue senna/docusate MiraLAX as needed (10) DVT prophylaxis: Lovenox 40 mg SQ twice daily Disposition-stable for downgrade to medical/surgical unit We will order PT/OT for tomorrow. Overall significantly improved and hopeful for discharge perhaps even sometime this weekend Admission and Anticipated Discharge Date Admission Date: May 27, 2020 Subjective Patient was taking a nap when I saw her shortly after lunch and reported feeling tired after standing for a while getting herself cleaned up. However, her pulse ox was 98% on 4 L. I turned her down to 3 L and she remained at a pulse ox of 95-96%. She was feeling less short of breath. Is moving her bowels, making urine, and tolerating p.o. No other acute concerns. Telemetry with sinus bradycardia normal sinus rhythm with rates in the 50s to 70s Review of Systems Review of Systems: All systems reviewed & are unremarkable except as noted in HPI & below Physical Exam Constitutional: WD/WN, vitals as above + obese Eyes: + anicteric sclerae Neck: trachea midline, no thyromegaly Respiratory: normal respiratory effort Auscultation: + crackles (only at left base); no diminished lung sounds (improved air movement throughout), no rhonchi and no wheezes Cardiovascular: Rate/Rhythm: regular rate and regular rhythm Heart Sounds: no murmur Extremities: no calf tenderness and no edema Chest (Breasts): Chest: normal inspection of chest Gastrointestinal (Abdomen): normal bowel sounds, soft, nontender, no hepatosplenomegaly Musculoskeletal: Extremities: extremities normal to inspection; no cyanosis and no clubbing Skin: no rashes, warm and dry Neurologic: moves all extremities and awake; no focal motor deficits Psychiatric: A+Ox3, euthymic affect Lymphatic: no lymphedema Results & Data Results & Data ([facility]) Vital Signs (Past 12 Hours) Vital Signs Temp Pulse Pulse Resp BP Pulse Ox 06/02/20 12:15 36.4 C L 71 22 122/73 96 06/02/20 08:27 36.6 C 74 20 115/66 94 06/02/20 08:00 50 L 06/02/20 05:17 36.4 C L 59 L 18 157/77 H 98 PG Care Time/CCT Total # of Minutes Spent Total Time Spent with Patient: Total time spent is greater than 50% in coordination of care (as documented) at patient's floor/unit and/or counseling patient: Coding Level of Care Code 20240 Subseq Hosp Care Lvl 2 Diagnoses Acute respiratory failure with hypoxia J96.01 Pneumonia due to COVID-19 virus U07.1; J12.89 Bradycardia R00.1 Overactive bladder N32.81 Hypertension I10 Vitamin B12 deficiency E53.8 Anxiety and depression F41.9; F32.9 Breast cancer C50.919 Constipation K59.00 DVT prophylaxis Z29.9
[2020-06-03 06:50] LABS: Basophils # (auto) 0.01 K/uL (0-0.2); Basophils % (auto) 0.1 %; Eosinophils # (auto) 0.02 K/uL (0-0.5); Eosinophils % (auto) 0.2 %; Hematocrit (blood only) 37.8 % (37-47); Hemoglobin 12.9 g/dL (12.0-16.0); Immature Granulocytes # (auto) 0.32 K/uL (0.00-0.02); Immature Granulocytes % (auto) 3.1 %; Lymphocytes # (auto) 1.26 K/uL (1.2-3.4); Lymphocytes % (auto) 12.2 %; Mean Corpuscular Hemoglobin 28.7 pg (25-34); Mean Corpuscular Hgb Conc 34.1 g/dL (32-36); Mean Corpuscular Volume 84.2 fL (80-100); Mean Platelet Volume 9.1 fL (7.4-10.4); Monocytes # (auto) 0.91 K/uL (0.11-0.59); Monocytes % (auto) 8.8 %; Neutrophils # (auto) 7.82 K/uL (1.4-6.5); Neutrophils % (auto) 75.6 %; Platelet Count 353 K/uL (130-400); RDW Standard Deviation 39.3 fL (36.4-46.3); Red Blood Count 4.49 M/uL (4.2-5.4); White Blood Count 10.34 K/uL (4.8-10.8)
[2020-06-03 07:22] LABS: Albumin Level 2.4 gm/dl (3.4-5.0); BUN Creatinine Ratio 30.4 (10-20); C Reactive Protein 0.44 mg/dl (0-0.29); Calcium 8.4 mg/dl (8.5-10.1); Creatinine Clr Calc Pharmacy 93.6 ml/min; Est GFR (African American) 105.9; Est GFR (Non-African American) 91.4; Potassium 3.9 mmol/L (3.5-5.1)
[2020-06-03 07:26] LABS: Albumin Globulin Ratio 0.6 (0.9-2); Bilirubin,Total 0.4 mg/dl (0.2-1); Globulin 3.8 gm/dl (2.5-4.0); Total Protein 6.2 gm/dl (6.4-8.2)
[2020-06-03] MEDS: ZINC SULFATE 220 MG CAPSULE PO SCH (09:50)
[2020-06-03] MEDS: FAMOTIDINE 20 MG TAB PO SCH ×2 (09:50→20:24)
[2020-06-03] MEDS: dexAMETHasone 6 MG in SYRINGE 0 ML IV SCH (09:50)
[2020-06-03] MEDS: CYANOCOBALAMIN (VITAMIN B-12) 2,500 MCG TAB.SUBL SL SCH (09:50)
[2020-06-03] MEDS: ENOXAPARIN INJ 40 MG/0.4 ML SYR SQ SCH ×2 (09:50→20:24)
[2020-06-03] MEDS: CHOLECALCIFEROL 1,000 UNITS 25 MCG TAB PO SCH (09:50)
[2020-06-03] MEDS: VENLAFAXINE HCL XR 75 MG CAPXR PO SCH (09:50)
[2020-06-03] MEDS: DOCUSATE SODIUM/SENNA 50/8.6MG TAB PO SCH (09:51)
--- NOTE | 2020-06-03 15:41 | Hospitalist Progress Note ---
Date of Service June 03, 2020 Assessment & Plan (1) Acute respiratory failure with hypoxia: Acute respiratory failure with hypoxia/bilateral pneumonia due to COVID-19 virus-symptoms started on 05/07 and her test was positive at an urgent care on 05/09 Had GI symptoms, and progressively worsening shortness of breath Was found to have a pulse ox of 80% on room air upon arrival On admission, D-dimer is elevated at 2310, CT angiogram chest on 05/28 is negative for PE, but shows bilateral extensive infiltrates Initially with high oxygen requirement of 15 L oxygen mask on the morning of 05/28-converted to high flow nasal cannula and is now weaned completely off of oxygen on the morning of 06/03 Significantly improved With some pain in the intercostals from coughing-give Tylenol as needed LFTs improved Blood cultures negative-final Continue dexamethasone 6 mg IV every morning x10-day course-last dose will be /3 Completed 5-day course of remdesivir for severe disease despite being outside the usual 7-10 day window Convalescent plasma not given as not likely to benefit this far out Continue Ventolin HFA 2 puffs 4 times daily as needed-she has not used this No antibiotics indicated, procalcitonin negative Continue zinc sulfate daily -continue flutter valve, incentive spirometer (2) Pneumonia due to COVID-19 virus: See above Should have follow-up chest x-ray in 3 to 4 weeks as an outpatient to ensure that infiltrates resolve (3) Bradycardia: Heart rate was consistently in the 40s and 50s during the day and dropped in the upper 30s sometimes at night She is asymptomatic with this during the day She may have sleep apnea which is undiagnosed causing bradycardia at nighttime Was recently started on atenolol 1 month ago as an outpatient for hypertension Discontinued atenolol and now heart rate is improved to the 50s to 70s Have since transferred off telemetry, doing well (4) Overactive bladder: Holding Toviaz unless can be brought in from home (5) Hypertension: Blood pressures remain controlled Discontinue atenolol as above for bradycardia No need for blood pressure medication at this time (6) Vitamin B12 deficiency: Continue vitamin B12 supplement 5000 mcg p.o. every morning (7) Anxiety and depression: Stable Continue venlafaxine 75 mg p.o. every morning (8) Breast cancer: History of such, not ongoing (9) Constipation: Now resolved -Continue senna/docusate MiraLAX as needed (10) DVT prophylaxis: Lovenox 40 mg SQ twice daily Disposition-continued stay, but overall much improved and hopeful for discharge perhaps tomorrow, may need to step oxygen test prior to discharge PT/OT evaluations ordered, but now not likely needed as she is independently ambulating in the hallways today Admission and Anticipated Discharge Date Admission Date: May 27, 2020 Subjective Patient feeling even better today and wonders if she can take a shower. She has been off of oxygen for several hours. Spotcheck on room air in the room and she is at 96-97% which is excellent. She is having some muscular pain under the ribs tender to the touch she thinks from all the coughing that she has had. She is moving her bowels regularly, no diarrhea. Tolerating p.o. and eating more than she has all week. She wants to try to walk in the hallways. Review of Systems Review of Systems: All systems reviewed & are unremarkable except as noted in HPI & below Physical Exam Constitutional: WD/WN, vitals as above + obese Eyes: + anicteric sclerae Neck: trachea midline, no thyromegaly Respiratory: normal respiratory effort, lungs clear to auscultation Cardiovascular: RRR, no murmur, no edema Chest (Breasts): Chest: normal inspection of chest Gastrointestinal (Abdomen): normal bowel sounds, soft, nontender, no hepatosplenomegaly Musculoskeletal: Extremities: extremities normal to inspection; no cyanosis and no clubbing Skin: no rashes, warm and dry Neurologic: moves all extremities and awake; no focal motor deficits Psychiatric: A+Ox3, euthymic affect Lymphatic: no lymphedema Results & Data Results & Data ([facility]) Vital Signs (Past 12 Hours) Vital Signs Temp Pulse Resp BP Pulse Ox 06/03/20 13:37 96 06/03/20 07:21 36.4 C L 68 19 130/79 96 Laboratory Results 06/03/20 06:14 06/03/20 06:14 PG Care Time/CCT Total # of Minutes Spent Total Time Spent with Patient: Total time spent is greater than 50% in coordination of care (as documented) at patient's floor/unit and/or counseling patient: Coding Level of Care Code 23936 Subseq Hosp Care Lvl 2 Diagnoses Acute respiratory failure with hypoxia J96.01 Pneumonia due to COVID-19 virus U07.1; J12.89 Bradycardia R00.1 Overactive bladder N32.81 Hypertension I10 Vitamin B12 deficiency E53.8 Anxiety and depression F41.9; F32.9 Breast cancer C50.919 Constipation K59.00 DVT prophylaxis Z29.9
[2020-06-04 06:54] VITALS: TEMP 97.7
[2020-06-04] MEDS: dexAMETHasone 6 MG in SYRINGE 0 ML IV SCH (08:30)
[2020-06-04] MEDS: ENOXAPARIN INJ 40 MG/0.4 ML SYR SQ SCH (08:31)
[2020-06-04] MEDS: VENLAFAXINE HCL XR 75 MG CAPXR PO SCH (08:31)
[2020-06-04] MEDS: CYANOCOBALAMIN (VITAMIN B-12) 2,500 MCG TAB.SUBL SL SCH (08:32)
[2020-06-04] MEDS: CHOLECALCIFEROL 1,000 UNITS 25 MCG TAB PO SCH (08:32)
[2020-06-04] MEDS: DOCUSATE SODIUM/SENNA 50/8.6MG TAB PO SCH (08:32)
[2020-06-04] MEDS: ZINC SULFATE 220 MG CAPSULE PO SCH (08:33)
[2020-06-04] MEDS: FAMOTIDINE 20 MG TAB PO SCH ×2 (08:34→19:47)
[2020-06-04 15:09] VITALS: O2SAT 95
[2020-06-04] MEDS ORDERED: OPTIRAY 320 125ml IV ONE (17:16)
--- NOTE | 2020-06-04 18:19 | CT Scan Report ---
CT ANGIOGRAM OF THE CHEST CLINICAL HISTORY: Atypical chest pain. Dyspnea. Covid pneumonia. COMPARISON STUDY: Chest CT dated 05/28/2020. TECHNIQUE: Following the IV administration of 119 cc of Optiray 320, CT angiogram of the chest was pe rformed from the upper abdomen to the thoracic inlet utilizing the pulmonary embolus protocol. Images are reviewed in the axial, sagittal, and coronal planes. 3-D MIPS images are created and assessed. I V contrast was administered without complication. A dose lowering technique was utilized adhering to the principles of ALARA. The examination is degraded by motion artifact. CT DOSE: 535.42 mGycm FINDINGS: Thyroid: Imaged portions of the thyroid gland are normal in size and attenuation. Thoracic aorta: The thoracic aorta is normal in caliber and demonstrates standard 3-vessel arch anato my. No dissection is seen. Pulmonary vasculature: The pulmonary trunk is normal in caliber. There are no filling defects identif ied in main, lobar, or proximal segmental pulmonary branches to suggest pulmonary embolus. Evaluation of the peripheral branches is compromised by motion artifact. Heart: The heart is enlarged and without pericardial effusion. Lungs and pleural spaces: Evaluation of the lung parenchyma is significantly degraded by motion artif act. Multifocal groundglass consolidation is again seen throughout both lungs. No pleural effusion is identified. Trachea and central airways are clear. Mediastinum: There are scattered subcentimeter mediastinal lymph nodes. [place]: Clear. Axillae: There is no axillary lymphadenopathy. Upper abdomen: Cholecystectomy clips are noted. 8 cm and 2 cm cysts are noted in the right lobe of th e liver. There is a small hiatal hernia. Skeletal structures: The skeletal structures are osteopenic. Arthritic change is seen in the shoulder s. No lytic or blastic bony lesions are seen. IMPRESSION: 1. Motion compromise examination. 2. There is no evidence of central pulmonary embolus within the main, lobar, or proximal segmental pu lmonary arteries. Evaluation of the peripheral branches is compromised by motion artifact. 3. Multifocal airspace consolidation is again seen throughout both lungs. This is consistent with rep orted history of a viral pneumonia. This has significantly cleared as compared to the 05/28/2020 exam ination. 4. Cardiomegaly. 5. Additional findings as above. ACT 112: Negative or not required by law. Electronically signed by: Shawn Emanuel M.D. 06/04/2020 6:18 PM
--- NOTE | 2020-06-04 18:43 | Discharge Summary ---
Date of Service June 04, 2020 Admission HPI Per Admitting Provider The patient is a 69-year-old female with a past medical history including breast cancer, hypertension, vitamin B12 deficiency, overactive bladder and depression. She had been seen in the emergency department on 05/21 and was diagnosed with COVID-19 at that time. She was given symptomatic treatment for cough, and told to quarantine at home. Since that time she has become progressively more short of breath, until it worsened to the point today where she has cut back in the emergency department for assessment. In the emergency department, patient was found to have a pulse ox of 80% on room air, that improved to 95% on 6 L oxygen mask Chest x-ray showed a worsening bilateral interstitial pneumonia compared to x- ray of 05/21. Discharge Exam Constitutional WD/WN, vitals as above + obese Eyes + anicteric sclerae Neck trachea midline, no thyromegaly Respiratory normal respiratory effort, lungs clear to auscultation normal respiratory effort Auscultation: + crackles (only at left base); no diminished lung sounds (improved air movement throughout), no rhonchi and no wheezes Cardiovascular RRR, no murmur, no edema Rate/Rhythm: regular rate and regular rhythm Heart Sounds: no murmur Extremities: no calf tenderness and no edema Chest (Breasts) Chest: normal inspection of chest Gastrointestinal (Abdomen) normal bowel sounds, soft, nontender, no hepatosplenomegaly Musculoskeletal Extremities: extremities normal to inspection; no cyanosis and no clubbing Skin no rashes, warm and dry Neurologic moves all extremities and awake; no focal motor deficits Psychiatric A+Ox3, euthymic affect Lymphatic no lymphedema Discharge Data Allergies Allergy/AdvReac Type Severity Reaction Status Date / Time Penicillins Allergy Mild ITCHING Verified 05/27/20 03:55 NSAIDS (Non-Steroidal AdvReac Mild ITCHING Verified 05/27/20 03:55 Anti-Inflamma Consultations 05/27/20 04:12 ED Decision to Admit Stat 05/27/20 06:41 Consult Case Management - Discharge Planning Routine Ordered Studies 05/28/20 08:53 CT angio chest PE protocol Urgent 06/04/20 14:02 CT angio chest PE protocol Stat Hospital Course (1) Acute respiratory failure with hypoxia: Acute respiratory failure with hypoxia/bilateral pneumonia due to COVID-19 virus-symptoms started on 05/07 and her test was positive at an urgent care on 05/09 Had GI symptoms, and progressively worsening shortness of breath Was found to have a pulse ox of 80% on room air upon arrival On admission, D-dimer is elevated at 2310, CT angiogram chest on 05/28 is negative for PE, but shows bilateral extensive infiltrates Initially with high oxygen requirement of 15 L oxygen mask on the morning of 05/28-converted to high flow nasal cannula and is now weaned completely off of oxygen on the morning of 06/03 Significantly improved With some pain in the intercostals from coughing-give Tylenol as needed LFTs improved Blood cultures negative-final Continue dexamethasone 6 mg IV every morning x10-day course-last dose will be 06/05 Completed 5-day course of remdesivir for severe disease despite being outside the usual 7-10 day window Convalescent plasma not given as not likely to benefit this far out Continue Ventolin HFA 2 puffs 4 times daily as needed-she has not used this No antibiotics indicated, procalcitonin negative Continue zinc sulfate daily -continue flutter valve, incentive spirometer (2) Pneumonia due to COVID-19 virus: See above Should have follow-up chest x-ray in 3 to 4 weeks as an outpatient to ensure that infiltrates resolve (3) Bradycardia: Heart rate was consistently in the 40s and 50s during the day and dropped in the upper 30s sometimes at night She is asymptomatic with this during the day She may have sleep apnea which is undiagnosed causing bradycardia at nighttime Was recently started on atenolol 1 month ago as an outpatient for hypertension Discontinued atenolol and now heart rate is improved to the 50s to 70s Have since transferred off telemetry, doing well (4) Overactive bladder: Holding Toviaz unless can be brought in from home (5) Hypertension: Blood pressures remain controlled Discontinue atenolol as above for bradycardia No need for blood pressure medication at this time (6) Vitamin B12 deficiency: Continue vitamin B12 supplement 5000 mcg p.o. every morning (7) Anxiety and depression: Stable Continue venlafaxine 75 mg p.o. every morning (8) Breast cancer: History of such, not ongoing (9) Constipation: Now resolved -Continue senna/docusate MiraLAX as needed (10) DVT prophylaxis: Lovenox 40 mg SQ twice daily Disposition-continued stay, but overall much improved and hopeful for discharge perhaps tomorrow, may need to step oxygen test prior to discharge PT/OT evaluations ordered, but now not likely needed as she is independently ambulating in the hallways today Discharge Plan Discharge Items Patient Disposition: Home - Self-Care Reason For Visit: ACUTE RESP FAILURE, COVID PNEUMONIA W/ HYPOXIA Discharge Diagnosis: Covid-19 pneumonia, acute respiratory failure with hypoxia-resolved Condition on Discharge: Good Activity: As commented below Lifting: Gradually increase as tolerated Bathing: No limitations Exercise/Sports: Gradually increase as tolerated Non-emergency contact: Primary Care Provider Call non-emergency contact if: you have any medication questions, your symptoms worsen, your pain is not controlled, your pain is worsening, your pain is unusual for you, your pain is concerning for you and you have a fever Follow-up/Referrals: Lui Borja MD [Primary Care Provider] - (Please follow-up within 1 to 2 weeks after discharge.) Diet: Regular Addtl Attending Provider Instructions: You were admitted with Covid-19 pneumonia and treated with a steroid called dexamethasone and were able to wean down off your oxygen. You are not requiring any oxygen at rest or with exertion at the time of discharge. The continued chest pain you are having is most likely musculoskeletal from coughing as well as some pain from the pneumonia. You can take Tylenol as needed for this. You did not have blood clots in the lungs. You will need only 1 more day of the dexamethasone on the morning of 06/05 to complete your course. Please use the albuterol inhaler as needed for cough as well as the Tessalon Perles as needed for cough. You should continue to take Pepcid 20 mg by mouth twice daily for 5 more days for the heartburn that you are having. This heartburn could be caused by the dexamethasone. You should have a repeat chest x-ray in 3 to 4 weeks to ensure that your lungs have completely cleared. Your home atenolol medication was stopped as your heart rate was too low. If your blood pressures become elevated again, talk to your primary care physician about a different medication to try for blood pressure. If you develop significant worsening chest pain, shortness of breath, calf pain or leg swelling, please return to the emergency room right away. It was a pleasure taking care of you and I am glad that you are feeling better! Take care, Georgette Keith MD [facility] Hospitalist Pending Studies at Discharge: No Stand-Alone Forms: My [facility] Medications and DC Order Prescriptions: New albuterol sulfate [Ventolin HFA] 90 mcg/actuation Hfa Aerosol Inhaler 2 puff inhalation Q6H PRN (Reason: cough) Qty: 18 RF: 0 acetaminophen 325 mg Tablet 650 mg PO Q4H PRN (Reason: pain) Qty: 30 RF: 0 famotidine 20 mg Tablet 20 mg PO BID 7 Days Qty: 14 RF: 0 benzonatate [Tessalon Perles] 100 mg Capsule 100 mg PO TID PRN (Reason: cough) Qty: 20 RF: 0 dexamethasone 6 mg tablet 6 mg PO DAILY 1 Days Qty: 1 RF: 0 Continued Toviaz 8 mg tablet extended release 24 hr 8 mg PO QAM RF: 0 cholecalciferol (vitamin D3) [Vitamin D3] 125 mcg (5,000 unit) Tablet 5,000 unit PO QAM RF: 0 cyanocobalamin (vitamin B-12) 5,000 mcg Capsule 5,000 mcg PO QAM RF: 0 venlafaxine 75 mg Tablet 75 mg PO QAM RF: 0 Discontinued atenolol 25 mg tablet 25 mg PO QPM RF: 0 Discharge Orders: Discharge Order (Routine); Ordered 06/04/20 Ordered By: Georgette Keith Admission Data Admit Date/Time: 05/27/20 05:03 Attending Provider: Georgette Keith Admit Provider: Suhas Franco Primary Care Provider: Lui Borja Other Providers: Suhas Franco Coding Diagnoses Acute respiratory failure with hypoxia J96.01 Pneumonia due to COVID-19 virus U07.1; J12.89 Bradycardia R00.1 Overactive bladder N32.81 Hypertension I10 Vitamin B12 deficiency E53.8 Anxiety and depression F41.9; F32.9 Breast cancer C50.919 Constipation K59.00 DVT prophylaxis Z29.9
[2020-06-04 18:53] VITALS: BP 123/72; PULSE 49
== END 2020-06-04 20:30 | disposition home or self-care (01) | DRG 177 ==
LOC: ED 02:58 → SUATTDRO 05:03 → 2S 05:03 → 3E 06-02 18:16